=== PATIENT | female | born 1945 | race Caucasian/White ===

== ENCOUNTER → 2017-07-10 11:45 | Outpatient (CLI) | payer MEDICARE, SELFPAY ==
[2017-07-10 13:05] LABS: Anion Gap 18.5 mEq/L (5-15); Blood Urea Nitrogen 22 mg/dL (7-18); Carbon Dioxide 24 mmol/L (21.0-32.0); Chloride 95 mmol/L (98-107); Creatinine,Serum 0.85 mg/dL (0.55-1.02); Estimated Glomerular Filt Rate 66 ml/min (>60); GFR (African American) 80 ML/MIN (>60); Glucose 134 mg/dL (74-106); Potassium 5.5 mmoL/L (3.5-5.1); Sodium 132 mmol/L (136-145)
== END ==
PROVIDERS: Family Provider Family Medicine; PCP Family Medicine; Visit Provider Internal Medicine
DX: I25.10 Atherosclerotic heart disease of native coronary artery without angina pectoris (principal); I77.9 Disorder of arteries and arterioles, unspecified; I11.9 Hypertensive heart disease without heart failure; E78.4 Other hyperlipidemia; I65.23 Occlusion and stenosis of bilateral carotid arteries; Z95.5 Presence of coronary angioplasty implant and graft
CPT/HCPCS: 36415; 80048

== ENCOUNTER → 2017-07-17 09:21 | Outpatient (CLI) | payer MEDICARE, SELFPAY ==
[2017-07-17 12:58] LABS: Anion Gap 14.9 mEq/L (5-15); Blood Urea Nitrogen 28 mg/dL (7-18); Carbon Dioxide 27 mmol/L (21.0-32.0); Chloride 93 mmol/L (98-107); Creatinine,Serum 0.82 mg/dL (0.55-1.02); Estimated Glomerular Filt Rate 69 ml/min (>60); GFR (African American) 83 ML/MIN (>60); Glucose 104 mg/dL (74-106); Potassium 4.9 mmoL/L (3.5-5.1); Sodium 130 mmol/L (136-145)
== END ==
PROVIDERS: Internal Medicine; PCP Family Medicine; Visit Provider Internal Medicine
DX: I25.10 Atherosclerotic heart disease of native coronary artery without angina pectoris (principal); I77.9 Disorder of arteries and arterioles, unspecified; I11.9 Hypertensive heart disease without heart failure; E11.9 Type 2 diabetes mellitus without complications; E78.5 Hyperlipidemia, unspecified; Z95.5 Presence of coronary angioplasty implant and graft; I65.23 Occlusion and stenosis of bilateral carotid arteries
CPT/HCPCS: 36415; 80048

== ENCOUNTER → 2017-11-01 07:37 | Outpatient (CLI) | payer MEDICARE, SELFPAY ==
--- NOTE | 2017-11-01 07:44 | AS_ITS ---
Renal Arterial Duplex Indications: 405.91 Unspecified renovascular hypertension. IMPRESSIONS Abdominal: Cyst in the right [place] kidney. Dimensions: 2cm (ML D)x 2cm (AP D). 1. Greater than 60% stenosis involving the left renal artery 2. The right renal artery appears normal. 3. Incidental findings: A cyst is visualized at the right kidney measuring 1.7 X 1.8 cm. Complete renal arterial duplex. Duplex scan and Doppler flow study including spectral analysis, color and correa scale imaging. Height: Height: 167.6cm. Height: 66in. Weight: Weight: 85.7kg. Weight: 188.6lb. Body mass index: BMI: 30.5kg/m^2. Body surface area: BSA: 2.02m^2. Location: Vascular laboratory. Patient status: Outpatient. Findings: Cyst in the right [facility] kidney. Dimensions: 2cm (ML D)x 2cm (AP D). Tables: Arterial flow: + +--------+--------+ Location V sys V ed + +--------+--------+ Right renal - proximal 124cm/s 25.8cm/s + +--------+--------+ Right renal - mid 143cm/s 28.6cm/s + +--------+--------+ Right renal - distal 137cm/s 22.9cm/s + +--------+--------+ Left renal - proximal 313cm/s 44.3cm/s + +--------+--------+ Left renal - mid 151cm/s 24.9cm/s + +--------+--------+ Left renal - distal 92.2cm/s 22.9cm/s + +--------+--------+ Right renal - Origin 142cm/s 24cm/s + +--------+--------+ Left renal - Origin 219cm/s 35cm/s + +--------+--------+ Aorta - mid 77cm/s 14cm/s + +--------+--------+ Renal anatomy: + +------+------+ Left Right + +------+------+ Long axis 12.2cm 10.3cm + +------+------+ Short axis 5.2cm 4cm + +------+------+ Velocity ratios: + +-----+ V sys + +-----+ Right renal/aortic 1.8 + +-----+ Left renal/aortic 4.1 + +-----+ (Report amended ) Electronically signed by: Rocco Arnett [id number]
== END ==
PROVIDERS: Family Provider Family Medicine; PCP Family Medicine; Visit Provider Internal Medicine
DX: I65.29 Occlusion and stenosis of unspecified carotid artery (principal); R09.89 Other specified symptoms and signs involving the circulatory and respiratory systems
CPT/HCPCS: 93976

== ENCOUNTER → 2018-04-30 10:34 | Outpatient (POV) | payer MEDICARE, SELFPAY | PROVIDERS: Visit Provider Dermatology | DX: Z00.00 Encounter for general adult medical examination without abnormal findings (principal) ==

== ENCOUNTER → 2018-05-28 11:35 | Outpatient (CLI) | payer MEDICARE, SELFPAY ==
--- NOTE | 2018-05-28 11:43 | XR_ITS ---
XR chest 2V HISTORY: ITS.REASON: SOB,COUGH,CHEST CONGESTION,LT RIB PAIN ORDERING PHYSICIAN: Sienna Almendarez PATIENT AGE: 73 years COMPARISON: None FINDINGS: The cardiomediastinal silhouette and pulmonary vascularity are within normal limits. There is a faint 12 mm opacity in the left upper lobe laterally not readily apparent on the previous exam. The remaining lungs are clear. Coronary artery stent is present with coronary artery calcifications noted. No acute bony findings. IMPRESSION: 1. Nonspecific faint opacity noted in the left upper lobe laterally. CT may provide further evaluation as this was not present on the previous exam 2. Coronary artery disease
== END ==
PROVIDERS: PCP Family Medicine; Visit Provider Nurse Practitioner Family
DX: R06.02 Shortness of breath (principal); R05 Cough; R09.89 Other specified symptoms and signs involving the circulatory and respiratory systems; R07.81 Pleurodynia
CPT/HCPCS: 71046

== ENCOUNTER → 2018-06-06 13:56 | Outpatient (CLI) | payer MEDICARE, SELFPAY ==
[2018-06-06 14:18] LABS: Blood Urea Nitrogen 28 mg/dL (7-18); Creatinine,Serum 1.01 mg/dL (0.55-1.02); Estimated Glomerular Filt Rate 54 ml/min (>60); GFR (African American) 65 ML/MIN (>60)
--- NOTE | 2018-06-06 14:27 | CT_ITS ---
CT chest w con HISTORY: Solitary pulmonary nodule, follow-up abnormal chest x-ray Shortness of breath, cough, congestion, left-sided chest pain, ITS.REASON: ABNORMAL CXR ORDERING PHYSICIAN: Renetta Corrigan PATIENT AGE: 73 years COMPARISON: None TECHNIQUE: Axial images obtained following the administration of 75 mL of Optiray 350 . Sagittal, and coronal reformatted images are also generated and reviewed. All CT scans at the facility use one or more dose reduction, viz: automated exposure control, ma/kV adjustment per patient size (including targeted exams where dose is matched to indication, i.e. head), or iterative reconstruction technique. FINDINGS: There are few scattered small axillary lymph nodes. No mediastinal or hilar adenopathy is evident. There is an area of asymmetric density in the superior aspect of the left breast possibly due to asymmetric breast tissue. Mammography suggested for further evaluation. Asymmetric density also present in the left retroareolar region. There are coronary artery calcifications with normal heart size. No mediastinal or hilar mass or adenopathy. There is centrilobular emphysema with hyperinflation and attenuation of the peripheral pulmonary vessels consistent with COPD. There are scattered faint nodular opacities scattered throughout both lungs. There is a 13 x 11 mm opacity in the left upper lobe laterally corresponding to the radiographic abnormality. This is composed of multiple small nodular densities. An area of infiltrate is present in the right upper lobe 12 mm with a somewhat tree-in-bud appearance. Patchy densities present in the left lung base posteriorly. A small cavitary area is present in the left lung base posteriorly at 2.7 x 1.8 x 1.2 cm with a thin rim. 6 mm noncalcified nodule is present in the left lung base. Calcified granuloma is present upper lobe. No pleural effusions are evident. There is a nondisplaced fracture of the left ninth rib laterally this does appear acute. IMPRESSION: 1. Radiographic abnormality corresponds to a small cluster of nodular opacities. Additional tree-in-bud opacification noted in the superior segment right lower lobe along with small bilateral pulmonary nodular densities. This may be inflammatory or infectious in nature. Cannot exclude the possibility of neoplasm. 3 month follow-up is suggested. 2. 2.7 cm x 1.8 cm cavitary lesion in the left lower lobe with a thin rim possibly due to complex pneumatocele. Neoplasm or abscess not totally excluded therefore, three-month CT follow-up suggested 3. Nondisplaced left ninth rib fracture. 4. Coronary artery calcification 5. Centrilobular emphysema/COPD
== END ==
PROVIDERS: Nurse Practitioner Family; Visit Provider Nurse Practitioner
DX: R93.89 Abnormal findings on diagnostic imaging of other specified body structures (principal); J18.9 Pneumonia, unspecified organism; R06.02 Shortness of breath; R05 Cough; R09.89 Other specified symptoms and signs involving the circulatory and respiratory systems; R07.81 Pleurodynia; Z87.891 Personal history of nicotine dependence
CPT/HCPCS: 36415; 71260; 82565; 84520; Q9967

== ENCOUNTER → 2018-06-14 08:47 | Outpatient (CLI) | payer MEDICARE, SELFPAY ==
--- NOTE | 2018-06-14 08:58 | MM_ITS ---
MM Dig screening mamm BI w/CAD CAD Screening COMPARISON: Digital mammograms with CAD 01/15/2017 and 11/26/2015 INDICATION: There is no personal or family history of breast cancer TECHNIQUE: Standard CC and MLO images were obtained. R2 CAD reviewed. FINDINGS: The breasts are composed primarily of fat with mild to moderate scattered fibroglandular densities throughout each breast. There is no new or suspicious lesion in either breast and there are no suspicious microcalcifications. There are few benign-appearing microcalcifications in each breast. IMPRESSION: Fibrofatty parenchyma with no suspicious lesion seen BI-RADS Category: 2 Benign Finding(s) RECOMMENDED FOLLOW-UP: 1YR - 1 YEAR FOLLOW-UP (A letter has been sent to the patient regarding results of the study.)
== END ==
PROVIDERS: PCP Nurse Practitioner; Visit Provider Nurse Practitioner
DX: Z12.31 Encounter for screening mammogram for malignant neoplasm of breast (principal)
CPT/HCPCS: 77067

== ENCOUNTER → 2018-06-20 10:23 | Outpatient (CLI) | payer MEDICARE, SELFPAY ==
--- NOTE | 2018-06-20 10:30 | XR_ITS ---
XR chest 2V HISTORY: Follow-up pneumonia ITS.REASON: ABNORMAL XRAY ORDERING PHYSICIAN: Renetta Corrigan PATIENT AGE: 73 years COMPARISON: 05/28/2018, 06/06/2018 FINDINGS: The cardiomediastinal silhouette and pulmonary vascularity are within normal limits. Coronary artery stent is present Small area of parenchymal opacity is once again noted in the left upper lobe atelectatic millimeters corresponding to the parenchymal opacity seen on the recent chest x-ray and CT scan overall not significantly changed. Remaining lungs are clear. Mild degenerative changes are present in the thoracic spine. IMPRESSION: Overall no change in the indeterminate parenchymal opacity in the left upper lobe. [facility]PC follow-up suggested to confirm stability
== END ==
PROVIDERS: PCP Nurse Practitioner; Visit Provider Nurse Practitioner
DX: R93.89 Abnormal findings on diagnostic imaging of other specified body structures (principal)
CPT/HCPCS: 71046

== ENCOUNTER → 2018-11-08 12:45 | Outpatient (CLI) | payer MEDICARE, SELFPAY ==
--- NOTE | 2018-11-08 12:50 | CT_ITS ---
CT chest wo con HISTORY: Follow-up abnormal chest CT, solitary pulmonary nodule, shortness of breath ITS.REASON: FU ABNORMAL CT CHEST ORDERING PHYSICIAN: Renetta Corrigan APRN PATIENT AGE: 73 years COMPARISON: 06/06/2018 Technique: Axial images were obtained. Sagittal, and coronal reformatted images are also generated and reviewed. All CT scans at the facility use one or more dose reduction, viz: automated exposure control, ma/kV adjustment per patient size (including targeted exams where dose is matched to indication, i.e. head), or iterative reconstruction technique. FINDINGS: Coronary artery calcifications are present. Normal heart size. No mediastinal or hilar mass. Centrilobular emphysema. There is a 5 mm noncalcified nodule in the right lung base posteriorly unchanged. A subpleural 5 mm nodular density is present in the right lung base posteriorly unchanged. 4 mm subpleural nodule right lung base medially unchanged. The infiltrate within the posterior aspect of the right upper lobe is once again noted but slightly improved no change in these parenchymal opacity in the central aspect of the right upper lobe at 6 mm may be due to an area of inflammation. Cluster of small nodules once again noted in the left upper lobe anteriorly and laterally at 12 x 9 mm. These nodules appear somewhat more coalescent on today's exam. A somewhat irregular cavity is present in the left lung base posteriorly may represent a small pneumatocele unchanged measuring approximately 1.8 cm. Groundglass opacity is present superior to this region at 6 mm unchanged. Scattered small nodes present in the axilla. Upper abdominal images show small hiatal hernia. No acute bony findings. IMPRESSION: 1. There are scattered bilateral pulmonary parenchymal opacities as detailed above. Most of these are not significantly changed. The the cluster small nodules in the left upper lobe anteriorly appears more coalescent. This is a question clinical significance. PET/CT may provide further evaluation. If this is not performed then, would recommend continued 6 month follow-up.. 2. Centrilobular emphysema with coronary artery calcifications
== END ==
PROVIDERS: PCP Family Medicine; Visit Provider Nurse Practitioner
DX: R93.89 Abnormal findings on diagnostic imaging of other specified body structures (principal)
CPT/HCPCS: 71250

== ENCOUNTER → 2018-11-12 10:22 | Outpatient (POV) | payer MEDICARE, SELFPAY | PROVIDERS: Visit Provider Dermatology | DX: Z00.00 Encounter for general adult medical examination without abnormal findings (principal) ==

== ENCOUNTER → 2019-01-13 09:20 | Outpatient (CLI) | payer MEDICARE, SELFPAY ==
--- NOTE | 2019-01-13 09:23 | CA_ITS ---
APPROVED REPORT Spiral Binder: RUBI Laterality: Bilateral Study Quality: Good Indications: dizziness Doppler Spectral Velocity Analysis ECA (R) 108.00/ cm/s ECA (L) 81.70/ cm/s dICA (R) 136.00/39.30 cm/s dICA (L) 105.00/35.40 cm/s Raegan (R) 90.40/26.70 cm/s Raegan (L) 111.00/34.60 cm/s pICA (R) 62.90/17.30 cm/s pICA (L) 84.10/23.60 cm/s dCCA (R) 74.60/16.50 cm/s dCCA (L) 66.80/22.80 cm/s pCCA (R) 67.60/12.60 cm/s pCCA (L) 76.20/15.70 cm/s Vert (R) 51.90/ cm/s Vert (L) 48.70/ cm/s ICA/CCA 1.82 ICA/CCA 1.66 Findings Duplex evaluation demonstrates stenosis of the right proximal internal carotid artery <20% with PSV <140 cm/sec, EDV <100 cm/sec, and IC/CC Ratio <4.0.Duplex evaluation demonstrates stenosis of the left proximal internal carotid artery <20% with PSV <140 cm/sec, EDV <100 cm/sec, and IC/CC Ratio <4.0. Heavy calcification in bilateral bulbs. Antegrade flow seen bilateral vertebral arteries. Conclusion Duplex evaluation demonstrates stenosis of the right proximal internal carotid artery <20% . Duplex evaluation demonstrates stenosis of the left proximal internal carotid artery <20% Heavy calcification in bilateral bulbs. Antegrade flow seen bilateral vertebral arteries. Electronically signed by : Rocco Arnett MD 01/14/2019 11:23:14
== END ==
PROVIDERS: PCP Nurse Practitioner; Visit Provider Nurse Practitioner Family
DX: I65.23 Occlusion and stenosis of bilateral carotid arteries (principal)
CPT/HCPCS: 93880

== ENCOUNTER → 2019-01-14 15:05 | Outpatient (POV) | payer MEDICARE, SELFPAY | PROVIDERS: Visit Provider Dermatology | DX: Z00.00 Encounter for general adult medical examination without abnormal findings (principal) ==

== ENCOUNTER → 2019-05-16 12:51 | Outpatient (CLI) | payer MEDICARE, SELFPAY ==
--- NOTE | 2019-05-16 12:59 | CT_ITS ---
PROCEDURE: CT CHEST WO CON CLINICAL INDICATION: PULMONARY NODULE Follow-up pulmonary nodule COMPARISON: CHESTW CT chest w con from 06/06/[address] chest wo con from 11/08/2018 TECHNIQUE: Axial images obtained with sagittal and coronal reformats. All CT scans at the facility use one or more dose reduction, viz: automated exposure control, ma/kV adjustment per patient size (including targeted exams where dose is matched to indication, i.e. head), or iterative reconstruction technique. FINDINGS: HEART AND MEDIASTINAL STRUCTURES: Coronary artery calcifications are present. There is mild thickening of the distal esophagus nonspecific LUNGS AND PLEURAL SPACES: COPD with centrilobular emphysema. Nodular alveolar infiltrate is noted in the right upper lobe posteriorly with a somewhat tree in bud pattern suggesting underlying infection/inflammation. This is somewhat more prominent than when compared to the previous exam. There are scattered small pulmonary opacities noted which appear stable. A 5 mm noncalcified nodules present in the right lower lobe posteriorly unchanged series 3, image 52. A peripheral parenchymal opacity is present in the left upper lobe laterally at 12 mm unchanged. A ground-glass opacity with central lucency is noted in the left upper lobe centrally unchanged small pneumatocele is present in the left lung base unchanged. A sub solid opacity at 10 mm is noted in the left lower lobe posteriorly unchanged. No effusions. BONY STRUCTURES: Degenerative changes thoracic spine UPPER ABDOMEN: Unremarkable. ADDITIONAL FINDINGS: No other significant abnormalities. IMPRESSION: 1. COPD with centrilobular emphysema and scattered nodular opacities which appear stable. Specifically, the nodular opacity in the left upper lobe appears stable. Suggest continued 6-12 month follow-up 2. Right upper lobe tree-in-bud nodular infiltrate slightly worse 3. Coronary artery disease Dictated by: Rocco Arnett MD 05/20/2019 07:31 Electronically signed by Rocco Arnett MD in [facility] 05/20/2019 07:31
== END ==
PROVIDERS: PCP Nurse Practitioner; Visit Provider Internal Medicine Pulmonary Disease
DX: R91.1 Solitary pulmonary nodule (principal)
CPT/HCPCS: 71250

== ENCOUNTER → 2020-06-22 09:22 | Outpatient (CLI) | payer MEDICARE, SELFPAY ==
--- NOTE | 2020-06-22 | XR_ITS ---
PROCEDURE: XR WRIST LT MIN 3V CLINICAL INDICATION: PAIN IN LT WRIST COMPARISON: CR WRL3 WRIST-3 VIEWS-LT from 01/31/2016 FINDINGS: Mild osteoarthritic changes involve the distal radial ulnar joint. There is mild triangular fibrocartilage calcification. Osteoarthritis is also noted at the scapho trapezium joint and 1st metacarpal-carpal joint. No fracture or dislocation. Other findings:None. IMPRESSION: Degenerative changes slightly worse compared to the previous exam Dictated by: Rocco Arnett MD 06/22/2020 19:12 Rocco Arnett MD in [facility] 06/22/2020 19:12
--- NOTE | 2020-06-22 | XR_ITS ---
PROCEDURE: XR WRIST RT MIN 3V CLINICAL INDICATION: PAIN IN RT WRIST COMPARISON: CR WRL3 WRIST-3 VIEWS-LT from 01/31/2016 FINDINGS: Osteoarthritic changes are present involving the distal radial ulnar joint with spurring along the lateral aspect of the distal ulna. There are osteoarthritic changes involving the 1st metacarpal-carpal joint and the scapho trapezium joint. No fracture or dislocation. Other findings:None. IMPRESSION: Degenerative changes as described above Dictated by: Rocco Arnett MD 06/22/2020 19:11 Rocco Arnett MD in [facility] 06/22/2020 19:11
== END ==
PROVIDERS: PCP Nurse Practitioner Family; Visit Provider Nurse Practitioner Family
DX: M25.532 Pain in left wrist (principal); M25.531 Pain in right wrist
CPT/HCPCS: 73110

== ENCOUNTER → 2020-06-25 14:40 | Outpatient (CLI) | payer MEDICARE, SELFPAY ==
--- NOTE | 2020-06-25 14:48 | CT_ITS ---
PROCEDURE: CT CHEST WO CON CLINICAL INDICATION: PULMONARY NODULE Follow up Former smoker COMPARISON: CT CHESTW CT chest w con from 06/06/[address] CHEST WO CON from 05/16/2019 TECHNIQUE: Axial images obtained with sagittal and coronal reformats. All CT scans at the facility use one or more dose reduction, viz: automated exposure control, ma/kV adjustment per patient size (including targeted exams where dose is matched to indication, i.e. head), or iterative reconstruction technique. FINDINGS: HEART AND MEDIASTINAL STRUCTURES: Severe coronary artery calcifications. Mild nonspecific thickening of the distal esophagus. No mediastinal or hilar mass or adenopathy. LUNGS AND PLEURAL SPACES: Centrilobular emphysema. Chronic tree-in-bud opacification in the right upper lobe posteriorly not significantly changed. There are scattered small pulmonary opacities once again noted. Most are unchanged. There is a 13 x 10 mm subpleural nodule in the left upper lobe laterally. This has slightly increased in size from the previous exam previously 11 x 7 mm. Small area of cavitation is present in the left perihilar region with the faint ground-glass density around this area unchanged. Ground-glass opacity is present in the left lower lobe at 12 mm slightly increased in size previously 10 mm. Small area of irregular cavitation noted in the left lung base posteriorly unchanged BONY STRUCTURES: There are old left-sided rib fractures. UPPER ABDOMEN: Unremarkable. ADDITIONAL FINDINGS: No other significant abnormalities. IMPRESSION: 1. 13 x 10 mm subpleural opacity in the left upper lobe. This has slightly increased in size. Neoplasm is considered. Suggest PET-CT for further evaluation. 2. Slight increase in size of ground-glass opacity in the left lower lobe of questionable clinical significance. 3. COPD with centrilobular emphysema. Other smaller pulmonary nodules are unchanged. Dictated by: Rocco Arnett MD 06/26/2020 04:06 Rocco Arnett MD in [facility] 06/26/2020 04:06
== END ==
PROVIDERS: PCP Nurse Practitioner Family; Visit Provider Internal Medicine Pulmonary Disease
DX: R91.1 Solitary pulmonary nodule (principal)
CPT/HCPCS: 71250

== ENCOUNTER → 2020-08-25 08:13 | Outpatient (CLI) | payer MEDICARE, SELFPAY ==
--- NOTE | 2020-08-25 08:18 | XR_ITS ---
PROCEDURE: XR HIP RT 2-3V W/PELVIS CLINICAL INDICATION: RT HIP PAIN COMPARISON: No exams were available for comparison FINDINGS: There are mild osteoarthritic changes of the right hip. No fracture or dislocation. No lytic or blastic change. A small sclerotic focus overlies the femoral head on the abduction ule view. This is nonspecific and measures approximately 9 mm. IMPRESSION: Mild osteoarthritis of the right hip. Nonspecific sclerotic focus of the femoral head possibly due to a bone island. Stability may be confirmed with follow-up Dictated by: Rocco Arnett MD 08/25/2020 12:48 Rocco Arnett MD in [facility] 08/25/2020 12:48
== END ==
PROVIDERS: PCP Nurse Practitioner Family; Visit Provider Nurse Practitioner Family
DX: M25.551 Pain in right hip (principal)
CPT/HCPCS: 73502

== ENCOUNTER → 2020-08-31 10:45 | Outpatient (CLI) | payer MEDICARE, SELFPAY ==
--- NOTE | 2020-08-31 10:49 | MM_ITS ---
PROCEDURE INFORMATION: Exam: MG Screening 3D Mammography Exam date and time: 08/31/2020 10:49 AM Age: 75 years old Clinical indication: Encounter for screening mammogram for malignant neoplasm of breast TECHNIQUE: Imaging protocol: Screening tomosynthesis and 2D mammography including computer-aided detection (CAD) when performed. COMPARISON: 1. MG SCBI MM Dig screening mamm BI w/CAD 06/14/2018 9:16 AM 2. MG DMSB DIG MAMM-SCREEN SHREYAS W/CAD 01/15/2017 8:31 AM FINDINGS: MAMMOGRAPHY: Breast composition: The breast tissue is composed of scattered areas of fibroglandular density. Mass: None. Architectural distortion: None. Calcifications: No suspicious calcifications. Asymmetric density: 0.9cm focal asymmetry in the anterior third of the right upper outer quadrant Skin thickening: None. Axillary adenopathy: None. IMPRESSION: Patient to be recalled for spot compression views of the right breast in the CC and MLO projections and right breast ultrasound for further evaluation of a right breast asymmetry. ASSESSMENT: BI-RADS Category 0: Incomplete- Need Additional Imaging Evaluation and/or Prior Mammograms for Comparison
== END ==
PROVIDERS: PCP Nurse Practitioner Family; Visit Provider Nurse Practitioner Family
DX: Z12.31 Encounter for screening mammogram for malignant neoplasm of breast (principal)
CPT/HCPCS: 77063; 77067

== ENCOUNTER → 2020-09-27 13:41 | Outpatient (CLI) | payer MEDICARE, SELFPAY ==
--- NOTE | 2020-09-27 13:45 | MM_ITS ---
PROCEDURE: MM DIG MAMM DX UNILAT RT CAD Digital Breast Tomosynthesis Included Right breast ultrasound complete with axilla CLINICAL INDICATION: ABN MAMM COMPARISON: MG DMSB DIG MAMM-SCREEN SHREYAS from 11/26/2015 MG DMSB DIG MAMM-SCREEN SHREYAS W/CAD from 01/15/2017 MG SCBI MM Dig screening mamm BI w/CAD from 06/14/2018 MG MM DIG SCREENING MAMM BI W/CAD from 08/31/2020 US US BREAST RT COMPLETE from 09/27/2020 TECHNIQUE: Problem solving views of the right breast along with right breast ultrasound FINDINGS: The area of asymmetry in the anterior 1/3 of the right breast slightly lateral appears to compress out as fibroglandular tissue and is only well seen on the CC view. There is a fairly well-circumscribed nodule in the lateral aspect of the right breast that has been present dating back to 01/15/2017. This nodule slightly more prominent on the most recent screening mammogram. Right breast ultrasound: The only abnormality detected is a small cluster of cysts at 11 o'clock measuring approximately 5 by 5 mm and may in part be related to the lateral mammographic abnormality. No suspicious nodules evident. IMPRESSION: Probably benign findings. Recommend six-month mammographic and sonographic follow-up BI-RAD Category: 3 Probably Benign Finding Short Term Follow-Up FOLLOW-UP: 6M 6 Month Follow-up (A letter has been sent to the patient regarding results of the study.) Dictated by: Rocco Arnett MD 10/06/2020 09:57 Rocco Arnett MD in [facility] 10/06/2020 09:57
== END ==
PROVIDERS: PCP Nurse Practitioner Family; Visit Provider Nurse Practitioner Family
DX: R92.8 Other abnormal and inconclusive findings on diagnostic imaging of breast (principal)
CPT/HCPCS: 76641; 77061; 77065; G0279

== ENCOUNTER → 2021-01-03 14:20 | Outpatient (CLI) | payer MEDICARE, SELFPAY ==
--- NOTE | 2021-01-03 14:29 | US_ITS ---
PROCEDURE: US TRANSVAGINAL CLINICAL INDICATION: ABN VAGINAL BLEEDING Postmenopausal bleeding COMPARISON: No exams were available for comparison FINDINGS: UTERUS: 4cm x 3cmx 2cm with a combined endometrial thickness of 9.8mm LEFT OVARY: Not visualized. No obvious left adnexal mass. RIGHT OVARY: [id number] with a volume of 7.9ml. There are 2 right ovarian cyst which measure 17 and 15 mm. IMPRESSION: Thickened endometrium at 10 mm. Differential diagnosis includes endometrial hyperplasia, hemorrhage, or endometrial carcinoma. Dictated by: Rocco Arnett MD 01/03/2021 15:32 Rocco Arnett MD in [facility] 01/03/2021 15:32
== END ==
PROVIDERS: PCP Nurse Practitioner Family; Visit Provider Nurse Practitioner Family
DX: N93.9 Abnormal uterine and vaginal bleeding, unspecified (principal)
CPT/HCPCS: 76830

== ENCOUNTER → 2021-03-21 12:43 | Outpatient (CLI) | payer MEDICARE, SELFPAY ==
--- NOTE | 2021-03-21 12:44 | CA_ITS ---
APPROVED REPORT EXAM: Comprehensive 2D, Doppler, and color-flow Echocardiogram Manager Transplant: Loree Ash, ISABEL, RVS Ht: 5 ft 6 in Wt: 206lbs BSA: 2.02 BP: 146/76 mmHg Indications: CAD, Pre-op clearance for Left hip replacement, 2D Dimensions Left Atrium 3.64 cm LA Volume 79.20 mL LVOT 2.06 cm (M/F) 1.5-2.5 LA Volume Index 41.50 mL/m2 (M/F) 16-34 M-Mode Dimensions RVDd 2.81 cm (0.9-2.6) LA Diam 4.34 cm (1.9-4.0) LVDd 5.10 cm (3.5-5.7) Ao Diam 3.22 cm (2.0-3.7) LVDs 3.78 cm (3.5-5.7) IVSd 1.09 cm (0.6-1.1) PWd 1.13 cm (0.6-1.1) EF (Teich) 50.60% EPSs 0.77 cm FS 25.90% EDV (Teich) 123.80 mL TAPSE 2.00 (<1.7) ESV (Teich) 61.20 mL LV Diastology E Decel Time 280.00 (160-240 msec) E/A Ratio 0.70 MED E' 7.80 (< 7 cm/sec) MED A' 10.20 cm/s E'/MED E' Ratio 8.03 (>14) LAT E' 9.90 (<10 cm/sec) LAT A' 11.90 cm/s E/LAT E' Ratio 6.32 (>14) Aortic Valve LVOT Max 107.00 (70-110 cm/s) LVOT VTI 29.33 cm AoV Peak Benjamin. 150.00 (50-130 cm/s) AO Peak GR. 9.00 mmHg AO Mean GR. 4.80 (<5 mmHg) AO VTI 39.18 (18-25 cm) VINCENZO (VTI) 2.50 (2.5-4.5 cm2) Mitral Valve MV A Velocity 89.00 (40-130 cm/s) E/A Ratio 0.70 MV Decel. Time 280.00 (160-240 ms) Pulmonary Valve PV Peak Velocity 99.00 (50-150 cm/s) CA End VMAX 104.00 cm/s Tricuspid Valve TR P. Velocity 177.00 cm/s RAP Estimate 10.00 mmHg RVSP 22.60 mmHg Left Ventricle Left atrium is qualitatively mildly enlarged, left ventricle is normal size, mild concentric left ventricular hypertrophy, visually estimated ejection fraction 55% with no regional wall motion abnormality, grade 1 diastolic dysfunction seen without tissue Doppler evidence of raise left atrial pressure. Right Ventricle Right atrium and right ventricle are mildly enlarged with normal contractility. Aortic Valve Aortic valve is minimally thickened and fibrosed, there is no aortic stenosis or aortic insufficiency. Mitral Valve Mitral is grossly normal, there is trace mitral regurgitation. Tricuspid Valve Tricuspid grossly normal, there is trace tricuspid regurgitation, tricuspid regurgitation jet velocity is inadequate for calculation of the right ventricular systolic pressure. Pulmonic Valve Pulmonic valve is poorly visualized. Great Vessels Aortic root is normal size. Inferior vena cava is poorly visualized. Pericardium No significant pericardial effusion noted. Conclusion 1. Mild biatrial enlargement, normal left ventricular size, mild concentric left ventricular hypertrophy, visually estimated ejection fraction 45% with no wall motion abnormality, grade 1 diastolic dysfunction without tissue Doppler evidence of raise left atrial pressure. 2. Left ventricle normal contractility. 3. Trace mitral and tricuspid regurgitation. 4. No significant pericardial effusion. 5. Inferior vena cava is poorly visualized. Electronically signed by : Max Georges MD 03/21/2021 21:15:44
== END ==
PROVIDERS: PCP Nurse Practitioner Family; Visit Provider Physician Assistant
DX: E78.2 Mixed hyperlipidemia (principal); I11.9 Hypertensive heart disease without heart failure; I25.10 Atherosclerotic heart disease of native coronary artery without angina pectoris; I65.23 Occlusion and stenosis of bilateral carotid arteries; I77.9 Disorder of arteries and arterioles, unspecified; Z95.5 Presence of coronary angioplasty implant and graft
CPT/HCPCS: 93306

== ENCOUNTER → 2021-04-11 14:37 | Outpatient (CLI) | payer MEDICARE, SELFPAY ==
--- NOTE | 2021-04-11 14:43 | MM_ITS ---
PROCEDURE INFORMATION: Exam: US Right Breast, Complete MG Right Diagnostic Breast Tomosynthesis Exam date and time: 04/11/2021 2:43 PM Age: 75 years old Clinical indication: Short-term radiographic follow-up for a right breast mass TECHNIQUE: Imaging protocol: Complete ultrasound of all four quadrants of the Right breast and the retroareolar regions, including ultrasound of the axilla when performed. Right Diagnostic tomosynthesis and 2D mammography including computer-aided detection (CAD) when performed. Unilateral or bilateral exam. COMPARISON: 1. MG MM DIG MAMM DX UNILAT RT CAD 09/27/2020 2:05 PM 2. MG MM DIG SCREENING MAMM BI W/CAD 08/31/2020 10:50 AM FINDINGS: MAMMOGRAPHY: The breast tissue is composed of scattered areas of fibroglandular density. There is no stellate mass, architectural distortion or suspicious microcalcifications to suggest malignancy. Stable 0.9 cm ovoid mass in the anterior to middle third of the right upper outer quadrant. No skin thickening or axillary adenopathy. ULTRASOUND: Sonographic images of the right breast including the retroareolar region, all 4 quadrants and the axilla do not demonstrate any solid masses. 0.5 cm right 11 o'clock axis cyst. Cluster of cysts with a combined dimension of 1.3 cm in the right 10 o'clock axis most likely correlates with the stable mass on mammography. No architectural distortion or acoustical shadowing. No skin thickening or axillary adenopathy. IMPRESSION: Stable mammographically visible probably benign mass in the upper outer quadrant of the right breast. A six-month follow-up diagnostic bilateral mammogram is recommended for continued close surveillance of the right breast as well as part of an annual screening schedule ASSESSMENT: BI-RADS Category 3: Probably benign
== END ==
PROVIDERS: PCP Nurse Practitioner Family; Visit Provider Nurse Practitioner Family
DX: R92.8 Other abnormal and inconclusive findings on diagnostic imaging of breast (principal)
CPT/HCPCS: 76641; 77061; 77065; G0279

== ENCOUNTER → 2021-04-29 07:27 | Outpatient (CLI) | payer MEDICARE, SELFPAY ==
--- NOTE | 2021-04-29 07:27 | CT_ITS ---
FINAL REPORT TECHNIQUE: Axial images were obtained through the chest without contrast. CLINICAL HISTORY: Nodule F/U left upper lobe last ct chest without 06/25/20 COMPARISON: Marked 09/19/2020; May 16, 2019 FINDINGS: There is no significant mediastinal mass or adenopathy. The heart size is normal. There is no pericardial or pleural effusion. Limited images of the upper abdomen are unremarkable. The subpleural nodule in the lateral left upper lobe measures 1.3 x 1.8 cm in transverse and craniocaudal dimensions. This appears larger than previous and is concerning for low grade neoplasm. Mild chronic changes are seen in the lung bases. There a is a ground-glass opacity in left lower lobe on image 41 of series 2 that is stable. IMPRESSION: Progressive increase in size of a noncalcified subpleural nodule in the periphery of the left upper lobe. PET scan is highly recommended. Tissue sampling could be considered. Reviewed, Interpreted and Dictated by Bk Singh MD Transcribed by Long Breaux Authenticated by Bk Singh MD on 04/29/2021 09:27:[address] [facility]
[2021-04-29 08:30] VITALS: PULSE 57; PULSE 61
== END ==
PROVIDERS: PCP Nurse Practitioner Family; Visit Provider Internal Medicine Pulmonary Disease
DX: R91.8 Other nonspecific abnormal finding of lung field (principal)
CPT/HCPCS: 71250; 94060; 94618; 94640; 94727; 94729

== ENCOUNTER → 2021-07-04 09:10 | Outpatient (CLI) | payer MEDICARE, SELFPAY ==
[2021-07-04 09:45] LABS: Basophils # 0.1 K/mm3 (0-0.2); Basophils % 1.7 % (0.1-2.0); Eosinophils # 0.4 K/mm3 (0.0-0.4); Eosinophils % 5.7 % (0.1-12.0); Hematocrit 39.5 % (37.0-47.0); Hemoglobin 12.8 g/dL (12.2-16.2); Lymphocytes % 14.6 % (10-50); Mean Corpuscular HGB Conc 32.4 g/dL (31.8-35.4); Mean Corpuscular Hemoglobin 29.9 pg (27.0-31.2); Mean Corpuscular Volume 92.3 fl (81-99); Mean Platelet Volume 9.2 fl (7.4-10.4); Monocytes # 0.4 K/mm3 (0.1-1.0); Monocytes % 5.9 % (1.7-9.3); Neutrophils % 72.1 % (37.0-80.0); Platelet Count 234 K/mm3 (142-424); Red Blood Count 4.28 M/mm3 (4.20-5.40); Red Cell Distribution Width 13.9 % (11.5-17.5)
[2021-07-04 09:56] LABS: INR 0.97 (0.9-1.1)
[2021-07-04 10:04] LABS: Chloride 101 mmol/L (98-107); Potassium 4.7 mmoL/L (3.5-5.1); Sodium 134 mmol/L (136-145)
[2021-07-04 10:05] VITALS: BMI 32.3
[2021-07-04 10:07] LABS: Anion Gap 12.7 mEq/L (5-15); Blood Urea Nitrogen 25 mg/dl (7-17); Carbon Dioxide 25 mmol/L (22.0-30.0); Estimated Glomerular Filt Rate 70 ml/min (>60); GFR (African American) 85 ML/MIN (>60)
[2021-07-04 10:08] LABS: Calcium 8.5 mg/dl (8.4-10.2); Glucose 141 mg/dl (74-100)
--- NOTE | 2021-07-08 09:27 | HMH.ITSTN ---
I called and spoke with Freda Mcclure and told her not to take her plavix 07/09-07/11/2021 for her scheduled BX on 07/11/21. Also told her not to take her Aspirin on Sunday07/11/21.
[2021-12-29 10:58] LABS: POC Glucose,Bedside 141 (70-110)
== END ==
PROVIDERS: PCP Nurse Practitioner Family; Visit Provider Internal Medicine Pulmonary Disease
DX: J45.909 Unspecified asthma, uncomplicated (principal); I25.10 Atherosclerotic heart disease of native coronary artery without angina pectoris; I77.9 Disorder of arteries and arterioles, unspecified; I11.9 Hypertensive heart disease without heart failure; E87.4 Mixed disorder of acid-base balance; I65.23 Occlusion and stenosis of bilateral carotid arteries; Z95.5 Presence of coronary angioplasty implant and graft
CPT/HCPCS: 36415; 80048; 82962; 85025; 85610

== ENCOUNTER → 2021-07-11 07:45 | Outpatient (CLI) | payer MEDICARE, SELFPAY ==
--- NOTE | 2021-07-11 07:50 | CT_ITS ---
FINAL REPORT CLINICAL HISTORY: . left lung nodule FINDINGS: CT GUIDE LUNG BIOPSY. HISTORY: Lung mass ATTENDING PHYSICIAN: Dr. Narayan PHYSICIAN MANAGER CLIENT SUPPORT: Francisco Javier Riojas PA-C PROCEDURE: After informed consent was obtained and a timeout was performed, the patient was prepped and draped in usual sterile fashion over the left upper anterior chest. Utilizing local anesthesia and sterile technique with a coaxial system, access to lesion was obtained. 5 20-gauge core biopsy passes were made. Post biopsy films demonstrate a small amount of likely introduced air. There was no significant pneumothorax. The patient received mild procedural sedation. The patient tolerated the procedure well and left the department in good condition. IMPRESSION: Status post CT-guided biopsy of a lung nodule. PROCEDURAL SEDATION: 2 mg of IV Versed and 50 mcg of Fentanyl were administered. Continuous vital sign monitoring was used. An RN was present during the sedation process. Overall sedation time was 30 minutes. Reviewed, Interpreted and Dictated by Bk Singh MD Transcribed by DANYA Gomez Authenticated by Bk Singh MD on 07/11/2021 11:05:26 AM [facility]
--- NOTE | 2021-07-11 07:54 | HMH.ANESCL ---
[facility] Anesthesia Checklist - Patient Identification Patient Identification: Arm Band - Structural Data Admitted From: Home Planned Operative Procedure/s: CT guided lung bx Consent for Planned Operative Procedure(s) Verified: Yes - NPO Status Verified Time NPO: 00:00 - Additional verifications Anesthesia Reactions: No Hx Blood Transfusions: No Blood Transfusion Reaction: No - Airway Assessment C-Spine Mobility Assessed: Yes TMJ Mobility Assessed: Yes Dentition: Good Dentition - Neurological Assessment Level of Consciousness: Awake Hx Seizures: No Numbness or tingling in extremities: No - Anesthesia Plan Anesthesia Risk discussed: Yes Anesthesia Plan: Verified ASA Class: III Anesthesia Type: MAC [facility] History I have reviewed the patient's past medical history: Yes Medical History: Reports:: Coronary Artery Disease, Diabetes Mellitus Type 2, Hyperlipidemia, Hypertension, Myocardial Infarction Denies:: Cancer, Diabetes Mellitus Type 1, Internal Pacemaker, MRSA, Seizures *Have you ever received a pneumonia vaccine?: Yes *Have you received a flu vaccine this season?: No Other Medical History: Reports: Arthritis, Hypothyroidism. Denies: Blood Transfusion Reaction Anesthesia experience/problems:: None Laterality Cases: Bilateral: Arthroscopy Knee, Arthroscopy Shoulder Other Surgeries: Yes: No Previous Surgery, Angiogram, Cardiac Catheterization, Coronary Stent, Other. No: Pacemaker Amputation: No Fractures: No - *Social History Smoking Status: Former smoker Alcohol Intake: never Alcohol Intake Frequency:: other Substance Use Type: denies use *Occupational Status:: retired Housing: house Household Members: children *Travel in the last 8 weeks: None Family Hx:: Diabetes
[2021-07-11 08:02] VITALS: BMI 32.3
--- NOTE | 2021-07-11 08:56 | XR_ITS ---
FINAL REPORT TECHNIQUE: Chest PA & Lateral CLINICAL HISTORY: POST BIOPSY COMPARISON: CT from the same day FINDINGS: 2 views of the chest were performed. The heart size is normal. The mediastinum is within normal limits. There is abnormal opacity in the left upper lobe due to hemorrhage. There are no pleural effusions. There is a tiny peripheral left lung pneumothorax. The bony thorax appears intact. IMPRESSION: Tiny peripheral left lung pneumothorax. Abnormal opacity in the left upper lobe due to hemorrhage. Reviewed, Interpreted and Dictated by Bk Singh MD Transcribed by Long Breaux Authenticated by Bk Singh MD on 07/11/2021 11:05:18 AM [facility]
--- NOTE | 2021-07-11 11:00 | XR_ITS ---
FINAL REPORT TECHNIQUE: Chest PA & Lateral CLINICAL HISTORY: 2 HOUR POST BX COMPARISON: 2 hours prior FINDINGS: 2 views of the chest were performed. The heart size is normal. The mediastinum is within normal limits. There is no acute cardiopulmonary process. There are no pleural effusions. There is slight increase in the left apical pneumothorax with 9 mm of pleural separation. The bony thorax appears intact. IMPRESSION: Slight increase in a left apical pneumothorax. Reviewed, Interpreted and Dictated by Bk Singh MD Transcribed by Long Breaux Authenticated by Bk Singh MD on 07/11/2021 12:38:17 PM [facility]
--- NOTE | 2021-07-11 13:00 | XR_ITS ---
FINAL REPORT TECHNIQUE: Chest PA & Lateral CLINICAL HISTORY: 4 HOUR POST OP COMPARISON: 2 hours prior FINDINGS: 2 views of the chest were performed. The heart size is normal. The mediastinum is within normal limits. There is no acute cardiopulmonary process. There are no pleural effusions. There is no significant change in the left apical pneumothorax. The bony thorax appears intact. IMPRESSION: No significant change in the left apical pneumothorax. Recommend repeat study in 2 hours. Reviewed, Interpreted and Dictated by Bk Singh MD Transcribed by Long Breaux Authenticated by Bk Singh MD on 07/11/2021 01:13:15 PM [facility]
[2021-07-11 14:25] LABS: POC Glucose,Bedside 107 (70-110)
--- NOTE | 2021-07-11 15:00 | XR_ITS ---
FINAL REPORT TECHNIQUE: Chest PA & Lateral CLINICAL HISTORY: 6 HOURS POST BX COMPARISON: 2 hours prior FINDINGS: 2 views of the chest were performed. The heart size is normal. The mediastinum is within normal limits. There is no acute cardiopulmonary process. There are no pleural effusions. There is no change in the left apical pneumothorax pneumothorax. The bony thorax appears intact. IMPRESSION: No change in the left apical pneumothorax. Reviewed, Interpreted and Dictated by Bk Singh MD Transcribed by Long Breaux Authenticated by Bk Singh MD on 07/11/2021 04:17:22 PM [facility]
--- NOTE | 2021-07-13 08:38 | HMH.ITSTN ---
Patients mother , Mryanda, called this morning stating patient was having pain on her left side, posterior chest and left shoulder. I spoke with Naldo the radiology PA and she and Francisco Javier suggested the patient call the ordering doctors and tell him her symptoms [address] guided left lung BX. Patient was not short of breath at the time of the phone call. Told Myranda that if Mrs Mcclure symptoms started to get worse to go straight to the ER. Also told Myranda to call us back if she had any other questions.
[2021-12-29 10:59] LABS: POC Glucose,Bedside 135 (70-110)
== END ==
PROVIDERS: PCP Nurse Practitioner Family; Visit Provider Internal Medicine Pulmonary Disease
DX: R91.1 Solitary pulmonary nodule (principal); E11.9 Type 2 diabetes mellitus without complications; Z79.84 Long term (current) use of oral hypoglycemic drugs
CPT/HCPCS: 32408; 71046; 77012; 82962; 88305; 88333

== ENCOUNTER → 2021-09-29 14:38 | Outpatient (CLI) | payer MEDICARE, SELFPAY ==
--- NOTE | 2021-09-29 14:39 | CT_ITS ---
FINAL REPORT TECHNIQUE: Axial images were obtained from the lung apex to the mid abdomen by computed tomography. Coronal reformatted images were obtained. This study was performed with techniques to keep radiation doses as low as reasonably achievable, (ALARA). Individualized dose reduction techniques using automated exposure control or adjustment of mA and/or kV according to the patient''s size were employed. CLINICAL HISTORY: Nodule F/U COMPARISON: April 29, 2021 FINDINGS: There is no axillary adenopathy. There is no hilar or mediastinal adenopathy. There are several coronary artery calcifications. There is mild emphysema and mild scarring. There is no pleural or pericardial effusion. Limited images of the upper abdomen are unremarkable. There is a pleural based cavitary nodule in the lateral left upper lobe measuring 1.4 cm, previously measured 1.2 cm. This may be neoplastic or infectious. There is a ground-glass nodule in the left lower lobe measuring 8 mm and is stable. There are several small scattered, less than 5 mm nodules that are stable. IMPRESSION: Pleural based cavitary nodule lateral left upper lobe has slightly increased in size, may be neoplastic or infectious. Ground-glass nodule in the left lower lobe, stable. Small scattered less than 5 mm nodules, stable. Reviewed, Interpreted and Dictated by Brandon Au III, MD Transcribed by Azalea Poon Authenticated and [facility]
== END ==
PROVIDERS: PCP Nurse Practitioner Family; Visit Provider Internal Medicine Pulmonary Disease
DX: R91.8 Other nonspecific abnormal finding of lung field (principal)
CPT/HCPCS: 71250

== ENCOUNTER → 2021-10-13 13:53 | Outpatient (CLI) | payer MEDICARE, SELFPAY ==
--- NOTE | 2021-10-13 13:58 | MM_ITS ---
PROCEDURE INFORMATION: Exam: MG Bilateral Diagnostic Breast Tomosynthesis Exam date and time: 10/13/2021 1:56 PM Age: 76 years old Clinical indication: Short-term radiographic right breast TECHNIQUE: Imaging protocol: Bilateral Diagnostic tomosynthesis and 2D mammography including computer-aided detection (CAD) when performed. Unilateral or bilateral exam. COMPARISON: 1. MG MM DIG MAMM DX UNILAT RT CAD 04/11/2021 2:48 PM 2. MG MM DIG MAMM DX UNILAT RT CAD 09/27/2020 2:05 PM FINDINGS: MAMMOGRAPHY: The breast tissue is composed of scattered areas of fibroglandular density. There is no stellate mass, architectural distortion or suspicious microcalcifications in either breast to suggest malignancy. Stable 0.9 cm ovoid mass in the middle third of the right upper outer quadrant. 0.5 cm mass in the posterior third of the left medial breast only seen in the craniocaudal projection. No skin thickening or axillary adenopathy. IMPRESSION: 1. Patient to be recalled for a spot compression view of the left breast in the craniocaudal projection, a full 90 degree lateral view of the left breast, and left breast ultrasound for further evaluation of a questionable left breast mass. 2. Stable right upper outer quadrant mass compared to prior mammogram dated 08/31/2020. A six-month follow-up diagnostic right mammogram is recommended for continued close surveillance. ASSESSMENT: BI-RADS Category 0: Incomplete- Need Additional Imaging Evaluation and/or Prior Mammograms for Comparison
== END ==
PROVIDERS: PCP Nurse Practitioner Family; Visit Provider Nurse Practitioner Family
DX: R92.8 Other abnormal and inconclusive findings on diagnostic imaging of breast (principal)
CPT/HCPCS: 77062; 77066; G0279

== ENCOUNTER 2021-11-02 16:00 | Outpatient (RCR) | payer MEDICARE, SELFPAY | END 2021-11-02 16:05 | disposition home or self-care (01) | LOC: PT 16:00 | PROVIDERS: PCP Nurse Practitioner Family; Visit Provider Nurse Practitioner Family | DX: M25.551 Pain in right hip (principal) | CPT/HCPCS: 97110; 97163 ==

== ENCOUNTER → 2021-11-03 13:49 | Outpatient (CLI) | payer MEDICARE, SELFPAY ==
--- NOTE | 2021-11-03 14:02 | MM_ITS ---
PROCEDURE INFORMATION: Exam: US Left Breast, Complete MG Left Diagnostic Breast Tomosynthesis Exam date and time: 11/03/2021 2:07 PM Age: 76 years old Clinical indication: Recall on the basis of screening mammogram 10/13/2021 for further evaluation of 0.5 cm mass in the posterior 3rd of the left medial breast, only seen in the craniocaudad view. TECHNIQUE: Imaging protocol: Complete ultrasound of all four quadrants of the Left breast and the retroareolar regions, including ultrasound of the axilla when performed. Left Diagnostic tomosynthesis and 2D mammography including computer-aided detection (CAD) when performed. Unilateral or bilateral exam. COMPARISON: 1. MG MM DIG MAMM BI DX W/CAD 10/13/2021 1:56 PM 2. MG MM DIG SCREENING MAMM BI W/CAD 08/31/2020 10:50 AM 3. MG SCBI MM Dig screening mamm BI w/CAD 06/14/2018 9:16 AM 4. MG DMSB DIG MAMM-SCREEN SHREYAS 11/26/2015 9:51 AM FINDINGS: MAMMOGRAPHY: Spot compression confirms a 0.5 cm slightly lobulated mass which may have a few related faint calcifications in the left upper outer quadrant posterior 3rd, 13-15 cm from the nipple. ULTRASOUND: Left sonography, all 4 quadrants, retroareolar and axilla. At 11 o'clock 10 cm from the nipple, slightly irregular, probably solid, hypoechoic mass measuring 0.5 x 0.5 x 0.4 cm which appears to correlate with the mammographic mass. Sonographically unremarkable left axillary lymph nodes. IMPRESSION: Suspicious 0.5 cm mass in the left breast at 11 o'clock, recommend ultrasound-guided biopsy with correlation to confirm that the ultrasound placed clip corresponds to the mammographic mass. ASSESSMENT: BI-RADS Category 4: Suspicious
== END ==
PROVIDERS: PCP Nurse Practitioner Family; Visit Provider Nurse Practitioner Family
DX: R92.8 Other abnormal and inconclusive findings on diagnostic imaging of breast (principal)
CPT/HCPCS: 76641; 77061; 77065; G0279

== ENCOUNTER → 2021-11-28 14:16 | Outpatient (CLI) | payer MEDICARE, SELFPAY ==
--- NOTE | 2021-11-28 14:19 | MR_ITS ---
FINAL REPORT CLINICAL HISTORY: RIGHT HIP PAIN. right anterior hip pain x1year. catching in hip. FINDINGS: Multiplanar MR imaging of the right hip was performed without contrast. There is no evidence of fracture or dislocation. There is no evidence of avascular necrosis. There is mild to moderate right hip degenerative change. There are subchondral cysts in the superior right acetabulum. No labral tear is identified. A small right hip joint effusion is seen. The tendons are intact. The musculature is intact. No soft tissue mass or cyst is identified. IMPRESSION: Mild to moderate right hip degenerative change with subchondral cyst formation in the superior right acetabulum. Small right hip joint effusion. Reviewed, Interpreted and Dictated by Brandon Au III, MD Transcribed by Long Breaux Authenticated and [facility]
== END ==
PROVIDERS: PCP Nurse Practitioner Family; Visit Provider Nurse Practitioner Family
DX: M25.551 Pain in right hip (principal)
CPT/HCPCS: 73721

== ENCOUNTER → 2022-04-03 07:55 | Outpatient (CLI) | payer MEDICARE, SELFPAY ==
--- NOTE | 2022-04-03 07:55 | CT_ITS ---
PROCEDURE INFORMATION: Exam: CT Chest Without Contrast; Diagnostic Exam date and time: 04/03/2022 8:04 AM Age: 76 years old Clinical indication: Condition or disease; Other: Breast cancer; Prior surgery; Surgery date: 6+ months; Surgery type: Breast biopsy and removal of tumor; Additional info: 6 month f/u TECHNIQUE: Imaging protocol: Diagnostic computed tomography of the chest without contrast. Radiation optimization: All CT scans at this facility use at least one of these dose optimization techniques: automated exposure control; mA and/or kV adjustment per patient size (includes targeted exams where dose is matched to clinical indication); or iterative reconstruction. COMPARISON: CT CHEST WO CON 09/29/2021 2:44 PM FINDINGS: Lungs: Again noted is the 1.4 cm nodule in the anterolateral left upper lobe. The nodule is unchanged in size and appearance in the interval. A 7 mm nodule just inferior to the larger nodule is larger and patel in the interval. A 6 mm nodule in the posterolateral right lower lobe at 2-50 is unchanged. A ground-glass nodule in the posterior left lower lobe is unchanged. No other pulmonary nodules or masses. Small area of interstitial change in the posterior right upper lobe centered at 2-28. This finding was present previously. And is unchanged. No other pulmonary infiltrate or consolidation. Ihdl-es-caiyxdoh emphysematous changes again noted. Pleural spaces: Unremarkable. No pneumothorax. No pleural effusion. Heart: Unremarkable. No cardiomegaly. No pericardial effusion. Coronary arteries: Stents in the coronary arteries. Lymph nodes: Unremarkable. No enlarged lymph nodes. Vasculature: Unremarkable. No aortic aneurysm. Bones/joints: Again noted are dgur-za-hwtdayti degenerative changes. No lytic or blastic lesions. No fractures. Soft tissues: Area of stranding in the medial aspect of the left breast with clips in place. This finding is new since the previous study. The soft tissues of the body wall are otherwise unremarkable. IMPRESSION: 1. 1.4 cm nodule in the left upper lobe, stable in the interval. A 7 mm nodule just inferior to the larger nodule is larger and patel in the interval. This may represent progression of metastatic disease. Other pulmonary nodules are stable in the interval. 2. No other acute changes in the chest. 3. Emphysema. 4. Interval surgical change in the left breast. 5. Coronary artery disease treated with stenting.
== END ==
PROVIDERS: PCP Nurse Practitioner Family; Visit Provider Internal Medicine Pulmonary Disease
DX: R91.8 Other nonspecific abnormal finding of lung field (principal)
CPT/HCPCS: 71250

== ENCOUNTER → 2022-07-04 10:02 | Outpatient (CLI) | payer MEDICARE, SELFPAY | PROVIDERS: PCP Family Medicine; Visit Provider Nurse Practitioner | DX: E78.2 Mixed hyperlipidemia (principal); I11.9 Hypertensive heart disease without heart failure; I25.10 Atherosclerotic heart disease of native coronary artery without angina pectoris; I65.23 Occlusion and stenosis of bilateral carotid arteries; I77.9 Disorder of arteries and arterioles, unspecified; Z95.5 Presence of coronary angioplasty implant and graft; I42.8 Other cardiomyopathies | CPT/HCPCS: 93306 ==

== ENCOUNTER → 2022-07-10 08:13 | Outpatient (CLI) | payer MEDICARE, SELFPAY ==
[2022-07-10 09:07] LABS: Basophils # 0.1 K/mm3 (0-0.2); Basophils % 0.8 % (0.1-2.0); Eosinophils # 0.7 K/mm3 (0.0-0.4); Eosinophils % 8.3 % (0.1-12.0); Hemoglobin 13.7 g/dL (12.2-16.2); Lymphocytes # 1.3 K/mm3 (0.7-4.5); Lymphocytes % 15.9 % (10-50); Mean Corpuscular HGB Conc 32.7 g/dL (31.8-35.4); Mean Corpuscular Volume 88.7 fl (81-99); Mean Platelet Volume 8.1 fl (7.4-10.4); Monocytes # 0.5 K/mm3 (0.1-1.0); Monocytes % 6.5 % (1.7-9.3); Neutrophils # 5.6 K/mm3 (1.8-7.8); Neutrophils % 68.5 % (37.0-80.0); Platelet Count 204 K/mm3 (142-424); Red Blood Count 4.73 M/mm3 (4.20-5.40); Red Cell Distribution Width 13.5 % (11.5-17.5); White Blood Count 8.2 K/mm3 (4.8-10.8)
[2022-07-10 09:13] LABS: Creatinine,Urine Random 63 mg/dL (Not Estab.)
[2022-07-10 09:18] LABS: Microalbumin/Creatinine Ratio 27.7
[2022-07-10 09:25] LABS: Chloride 94 mmol/L (98-107); Potassium 4.4 mmoL/L (3.5-5.1); Sodium 133 mmol/L (136-145)
[2022-07-10 09:27] LABS: Blood Urea Nitrogen 18 mg/dl (7-17); Estimated Glomerular Filt Rate 81 ml/min (>60); GFR (African American) 98 ML/MIN (>60)
[2022-07-10 09:28] LABS: Alanine Aminotransferase 22 U/L (12-78); Albumin Level 4.3 g/dl (3.5-5.0); Albumin/Globulin Ratio 1.8 (1.1-1.8); Alkaline Phosphatase 60 U/L (38-126); Anion Gap 13.4 mEq/L (5-15); Aspartate Amino Transferase 27 U/L (14-36); Bilirubin,Total 0.5 mg/dl (0.2-1.3); Calcium 8.9 mg/dl (8.4-10.2); Carbon Dioxide 30 mmol/L (22.0-30.0); Cholesterol 166 mg/dl (140-200); Globulin 2.4 g/dL (1.3-3.2); Glucose 104 mg/dl (74-100); Total Protein,Serum 6.7 g/dl (6.3-8.2); Triglycerides 117 mg/dl (30-150); VLDL Cholesterol 23 mg/dL (0-40)
[2022-07-10 09:34] LABS: Hemoglobin A1C 11.8 % (4.0-6.0)
[2022-07-10 09:58] LABS: Thyroid Stimulating Hormone 0.24 uIU/mL (0.465-4.68)
[2022-07-10 10:12] LABS: Chol/HDL Ratio 2.9 (1-3.5); HDL Cholesterol 57 mg/dl (40-60)
== END ==
PROVIDERS: PCP Family Medicine; Visit Provider Family Medicine
DX: E11.9 Type 2 diabetes mellitus without complications (principal); E78.5 Hyperlipidemia, unspecified; E03.9 Hypothyroidism, unspecified; I25.10 Atherosclerotic heart disease of native coronary artery without angina pectoris; Z79.4 Long term (current) use of insulin
CPT/HCPCS: 36415; 80053; 80061; 82043; 82570; 83036; 84443; 85025

== ENCOUNTER → 2022-07-28 10:13 | Outpatient (CLI) | payer MEDICARE, SELFPAY ==
--- NOTE | 2022-07-28 10:13 | CT_ITS ---
FINAL REPORT TECHNIQUE: Axial CT images of the abdomen were obtained with IV contrast only. Coronal reformatted images were also obtained. This study was performed with techniques to keep radiation doses as low as reasonably achievable (ALARA). Individualized dose reduction techniques using automated exposure control or adjustment of mA and/or kV according to the patient''s size were employed. CLINICAL HISTORY: luq pain FINDINGS: There is mild bibasilar atelectasis or scarring. The liver has an unremarkable appearance, without evidence of mass. The gallbladder appears normal without evidence of gallstones. There is no evidence of biliary ductal dilatation. The pancreas appears normal. The spleen size is within normal limits. Bilateral renal cysts are noted. There are moderate vascular calcifications. Bilateral common iliac stents are noted. The appendix is normal. There is no evidence of adenopathy. No abnormal fluid collection is seen. No localized inflammatory processes identified. IMPRESSION: No mass or localized inflammatory process identified. Reviewed, Interpreted and Dictated by Brandon Au III, MD Transcribed by Alexus Cruz Authenticated and [facility]
== END ==
PROVIDERS: PCP Family Medicine; Visit Provider Family Medicine
DX: R10.12 Left upper quadrant pain (principal)
CPT/HCPCS: 74160; Q9967

== ENCOUNTER → 2022-09-18 12:50 | Outpatient (CLI) | payer MEDICARE, SELFPAY ==
--- NOTE | 2022-09-18 12:51 | CT_ITS ---
FINAL REPORT TECHNIQUE: Axial imaging of the chest was obtained without contrast. Reformatted images were also obtained and reviewed.This study was performed with techniques to keep radiation doses as low as reasonably achievable, (ALARA). Individualized dose reduction technique using automated exposure control or adjustment of mA and/or kV according to the patient's size were employed. CLINICAL HISTORY: lung nodule COMPARISON: 04/03/2022 FINDINGS: There is dense calcification of the coronary arteries and aortic arch. There is no axillary adenopathy. There is no hilar or mediastinal mass or adenopathy. Heart size is normal. There is no pericardial or pleural effusion. Limited images of the upper abdomen are unremarkable. There is a partially cavitary mass in the periphery of the left lower lobe measuring 1.4 cm which is unchanged. There is some adjacent pleural thickening which is stable. More inferior 7 mm nodule is seen in the left lower lobe on image 85 of series 3 which is also unchanged. There is a stable nodule in the right lower lobe measuring 6 mm. Scarring is again seen at the left lung base. IMPRESSION: 1.4 cm peripheral left upper lobe mass which is indeterminate. Consider PET-CT for further evaluation. Reviewed, Interpreted and Dictated by Bk Singh MD Transcribed by Shante Ahn Authenticated and [facility]
== END ==
PROVIDERS: PCP Family Medicine; Visit Provider Internal Medicine Pulmonary Disease
DX: R91.8 Other nonspecific abnormal finding of lung field (principal)
CPT/HCPCS: 71250

== ENCOUNTER → 2022-10-09 08:04 | Outpatient (CLI) | payer MEDICARE, SELFPAY ==
[2022-10-09 09:09] LABS: Alanine Aminotransferase 20 U/L (12-78); Albumin Level 4.3 g/dl (3.5-5.0); Albumin/Globulin Ratio 1.8 (1.1-1.8); Alkaline Phosphatase 70 U/L (38-126); Anion Gap 11.4 mEq/L (5-15); Aspartate Amino Transferase 28 U/L (14-36); Bilirubin,Total 0.7 mg/dl (0.2-1.3); Blood Urea Nitrogen 17 mg/dl (7-17); Carbon Dioxide 30 mmol/L (22.0-30.0); Chloride 96 mmol/L (98-107); Estimated Glomerular Filt Rate 70 ml/min (>60); GFR (African American) 84 ML/MIN (>60); Globulin 2.4 g/dL (1.3-3.2); Glucose 104 mg/dl (74-100); Potassium 4.4 mmoL/L (3.5-5.1); Sodium 133 mmol/L (136-145); Total Protein,Serum 6.7 g/dl (6.3-8.2)
[2022-10-09 09:38] LABS: Thyroid Stimulating Hormone 1.67 uIU/mL (0.465-4.68)
[2022-10-09 16:33] LABS: Hemoglobin A1C 8.2 % (4.0-6.0)
[2022-10-09 21:24] LABS: Chloride 95 mmol/L (98-107)
[2022-10-09 21:25] LABS: Potassium 4.5 mmoL/L (3.5-5.1); Sodium 131 mmol/L (136-145)
[2022-10-09 21:28] LABS: Anion Gap 11.5 mEq/L (5-15); Blood Urea Nitrogen 16 mg/dl (7-17); Calcium 8.8 mg/dl (8.4-10.2); Carbon Dioxide 29 mmol/L (22.0-30.0); Estimated Glomerular Filt Rate 70 ml/min (>60); GFR (African American) 84 ML/MIN (>60); Glucose 97 mg/dl (74-100)
== END ==
PROVIDERS: Nurse Practitioner; PCP Nurse Practitioner Family; Visit Provider Family Medicine
DX: E78.2 Mixed hyperlipidemia (principal); I11.9 Hypertensive heart disease without heart failure; I25.10 Atherosclerotic heart disease of native coronary artery without angina pectoris; I42.9 Cardiomyopathy, unspecified; I65.23 Occlusion and stenosis of bilateral carotid arteries; I77.9 Disorder of arteries and arterioles, unspecified; Z95.5 Presence of coronary angioplasty implant and graft; E11.9 Type 2 diabetes mellitus without complications; E03.9 Hypothyroidism, unspecified
CPT/HCPCS: 80048; 80053; 83036; 84443

== ENCOUNTER → 2023-01-09 08:10 | Outpatient (CLI) | payer MEDICARE, SELFPAY ==
[2023-01-09 09:20] LABS: Chloride 95 mmol/L (98-107); Potassium 4.6 mmoL/L (3.5-5.1); Sodium 133 mmol/L (136-145)
[2023-01-09 09:22] LABS: Blood Urea Nitrogen 14 mg/dl (7-17); Estimated Glomerular Filt Rate 70 ml/min (>60); GFR (African American) 84 ML/MIN (>60)
[2023-01-09 09:23] LABS: Alanine Aminotransferase 19 U/L (12-78); Albumin/Globulin Ratio 1.6 (1.1-1.8); Alkaline Phosphatase 60 U/L (38-126); Anion Gap 13.6 mEq/L (5-15); Aspartate Amino Transferase 25 U/L (14-36); Bilirubin,Total 0.8 mg/dl (0.2-1.3); Calcium 8.7 mg/dl (8.4-10.2); Carbon Dioxide 29 mmol/L (22.0-30.0); Cholesterol 145 mg/dl (140-200); Globulin 2.5 g/dL (1.3-3.2); Glucose 127 mg/dl (74-100); Total Protein,Serum 6.5 g/dl (6.3-8.2); Triglycerides 116 mg/dl (30-150); VLDL Cholesterol 23 mg/dL (0-40)
[2023-01-09 09:28] LABS: Hemoglobin A1C 7.9 % (4.0-6.0)
[2023-01-09 09:35] LABS: Direct LDL Cholesterol 69.05 mg/dL (100-129)
[2023-01-09 09:53] LABS: Thyroid Stimulating Hormone 0.63 uIU/mL (0.465-4.68)
[2023-01-09 14:24] LABS: Chol/HDL Ratio 3.5 (1-3.5); HDL Cholesterol 41 mg/dl (40-60)
== END ==
PROVIDERS: PCP Nurse Practitioner Family; Visit Provider Nurse Practitioner Family
DX: E03.9 Hypothyroidism, unspecified (principal); E11.9 Type 2 diabetes mellitus without complications; E78.5 Hyperlipidemia, unspecified; I25.10 Atherosclerotic heart disease of native coronary artery without angina pectoris; Z79.4 Long term (current) use of insulin; Z79.84 Long term (current) use of oral hypoglycemic drugs; I10 Essential (primary) hypertension; Z87.891 Personal history of nicotine dependence
CPT/HCPCS: 36415; 80053; 80061; 83036; 84443

== ENCOUNTER → 2023-01-29 09:21 | Outpatient (CLI) | payer MEDICARE, OTHER, SELFPAY ==
--- NOTE | 2023-01-29 17:08 | XR_ITS ---
FINAL REPORT TECHNIQUE: Bone densitometry calculations of the lumbar spine and left hip were obtained. CLINICAL HISTORY: POST MENOPAUSAL FINDINGS: Using L1-4, the bone mineral density of the spine is 1.209 g/cm2, corresponding to T-score of 1.5 and a Z score of 4.0. This is within the range of normal. Using the left hip, the bone mineral density of the femoral neck is 0.805 g/cm2, corresponding to a T-score of -0.4 and a Z-score of 1.8. This is within the range of normal. Using the right hip, the bone mineral density of the femoral neck is 0.874 g/cm2, corresponding to a T-score of 0.2 and a Z-score of 2.4. This is within the range of normal. NOTE: T-score: Standard deviation compared with peak bone mass of young adult mean. *Following the recommendations of the International Society of Bone densitometry, classification of hip BMD is based on the lower of two T-scores; total hip or femoral neck. IMPRESSION: 1. Bone mineral density of the lumbar spine within the range of normal. 2. Bone mineral density of the left femoral neck within the range of normal. 3. Bone mineral density of the right femoral neck within the range of normal. Reviewed, Interpreted and Dictated by Rima Joyner MD Transcribed by Alexus Cruz Authenticated and [facility]
== END ==
PROVIDERS: PCP Internal Medicine; Visit Provider Internal Medicine Hematology & Oncology
DX: Z78.0 Asymptomatic menopausal state (principal); C50.212 Malignant neoplasm of upper-inner quadrant of left female breast; Z17.0 Estrogen receptor positive status [ER+]; Z79.811 Long term (current) use of aromatase inhibitors
CPT/HCPCS: 77080

== ENCOUNTER → 2023-03-20 14:47 | Outpatient (CLI) | payer MEDICARE, OTHER, SELFPAY | PROVIDERS: PCP Internal Medicine; Visit Provider Nurse Practitioner Family | DX: R19.7 Diarrhea, unspecified (principal) | CPT/HCPCS: 87045; 87205 ==

== ENCOUNTER 2023-06-28 15:09 | Outpatient (CLI) | payer MEDICARE, OTHER, SELFPAY ==
--- NOTE | 2023-06-28 15:09 | CT_ITS ---
FINAL REPORT TECHNIQUE: Axial images were obtained through the chest without contrast. CLINICAL HISTORY: 9-month follow-up COMPARISON: 09/18/2022 FINDINGS: There is a mass in the periphery of the left upper lobe, measures 1.4 cm in size. This mass was present on the prior CT examination, is somewhat altered and configuration but not in size. This is best seen on images #51 359 of series 3. There are multiple small nodular opacities present in the posterior right upper lobe, seen in images 94 through 108 of series 3. There is a small bulla present in the posterior left lower lobe. The overall appearance is essentially stable when compared to the prior CT of August 2022. The heart size is normal. There is no pericardial or pleural effusion. Limited images of the upper abdomen are unremarkable. IMPRESSION: 1.4 cm mass in the left upper lobe periphery somewhat altered and configuration but not in size when compared to the prior exam. PET/CT might be helpful for further evaluation if clinically indicated. There are multiple small nodules in the posterior right upper lobe, which are essentially stable. Small bulla present in the posterior left lower lobe. Reviewed, Interpreted and Dictated by Bk Singh MD Transcribed by Beba Fuentes Authenticated and . [facility]
== END 2023-06-28 23:59 ==
LOC: RAD 15:09
PROVIDERS: PCP Internal Medicine; Visit Provider Internal Medicine Pulmonary Disease
DX: R91.8 Other nonspecific abnormal finding of lung field (principal)
CPT/HCPCS: 71250

== ENCOUNTER 2023-09-19 09:04 | Outpatient (CLI) | payer MEDICARE, OTHER, SELFPAY ==
--- NOTE | 2023-09-19 09:08 | US_ITS ---
FINAL REPORT CLINICAL HISTORY: pt feels palp area on LT abd COMPARISON: None FINDINGS: Limited sonographic images were obtained of the soft tissues in the the left abdomen at the area of interest. There is no evidence of mass or fluid collection or obvious abdominal wall hernia. IMPRESSION: No acute findings. Should symptoms progress, consider CT or MRI. Reviewed, Interpreted and Dictated by Marika Silver MD Transcribed by Stefani Schroeder Authenticated and [facility]
== END 2023-09-19 23:59 | disposition home or self-care (01) ==
LOC: RAD 09:05
PROVIDERS: PCP Nurse Practitioner; Visit Provider Nurse Practitioner
DX: R10.9 Unspecified abdominal pain (principal)
CPT/HCPCS: 76705

== ENCOUNTER 2023-12-25 08:25 | Outpatient (CLI) | payer MEDICARE, OTHER, SELFPAY ==
--- NOTE | 2023-12-25 08:30 | MM_ITS ---
PROCEDURE INFORMATION: Exam: MG Bilateral Screening 3D Mammography Exam date and time: 12/25/2023 8:23 AM Age: 78 years old Clinical indication: Screening examination TECHNIQUE: Imaging protocol: Bilateral Screening tomosynthesis and 2D mammography including computer-aided detection (CAD) when performed. COMPARISON: Screening mammogram 10/13/2021 FINDINGS: MAMMOGRAPHY: Breast composition: There are scattered areas of fibroglandular density. Mass: No suspicious masses. Architectural distortion: Postsurgical changes are noted right breast. Calcifications: No suspicious calcifications. Asymmetric density: None. Skin thickening: None. Axillary adenopathy: None. IMPRESSION: No mammographic evidence of malignancy. Annual screening is recommended unless otherwise clinically indicated. ASSESSMENT: BI-RADS Category 2: Benign.
== END 2023-12-25 23:59 | disposition home or self-care (01) ==
LOC: RAD 08:26
PROVIDERS: PCP Nurse Practitioner; Visit Provider Nurse Practitioner
DX: Z12.31 Encounter for screening mammogram for malignant neoplasm of breast (principal)
CPT/HCPCS: 77063; 77067

== ENCOUNTER 2024-02-05 08:58 | Outpatient (CLI) | payer MEDICARE, OTHER, SELFPAY ==
--- NOTE | 2024-02-05 09:02 | XR_ITS ---
FINAL REPORT CLINICAL HISTORY: catching , arthritis, pain with movement since Sunday, no known trauma FINDINGS: Right hip Three views were obtained. There is no fracture or dislocation. There are mild degenerative changes. No soft tissue abnormality is identified. IMPRESSION: No acute process. Authenticated and [facility]
== END 2024-02-05 23:59 | disposition home or self-care (01) ==
LOC: RAD 08:59
PROVIDERS: PCP Nurse Practitioner; Visit Provider Nurse Practitioner
DX: M25.551 Pain in right hip (principal); M16.11 Unilateral primary osteoarthritis, right hip
CPT/HCPCS: 73502

== ENCOUNTER 2024-02-29 12:22 | Outpatient (CLI) | payer MEDICARE, OTHER, SELFPAY ==
[2024-02-29 13:07] VITALS: BMI 32.3
--- NOTE | 2024-02-29 13:17 | ECG_ITS ---
APPROVED REPORT Exam: Resting ECG HR:53 bpm ECG Measurements Heart Rate 53 AXES IN 156 P 37 QRSd 98 QRS 40 QT 439 T -4 QTc 422 Conclusion SINUS BRADYCARDIA NONSPECIFIC T-WAVE ABNORMALITY BORDERLINE ECG UNCONFIRMED REPORT Electronically signed by : Rick Landaverde MD 03/02/2024 11:17:36
[2024-02-29 13:31] LABS: Anion Gap 14.2 mEq/L (5-15); Blood Urea Nitrogen 19 mg/dl (7-17); Calcium 8.9 mg/dl (8.4-10.2); Carbon Dioxide 27 mmol/L (22.0-30.0); Chloride 89 mmol/L (98-107); Creatinine Clearance Estimated 67 mL/min (50-200); Estimated Glomerular Filt Rate 81 ml/min (>60); GFR (African American) 98 ML/MIN (>60); Glucose 155 mg/dl (74-100); Potassium 4.2 mmoL/L (3.5-5.1); Sodium 126 mmol/L (136-145)
[2024-02-29 14:32] LABS: Basophils # 0.1 K/mm3 (0-0.2); Basophils % 0.9 % (0.1-2.0); Eosinophils # 0.4 K/mm3 (0.0-0.4); Eosinophils % 4.3 % (0.1-12.0); Hematocrit 36.5 % (37.0-47.0); Hemoglobin 12.5 g/dL (12.2-16.2); Lymphocytes # 1.3 K/mm3 (0.7-4.5); Lymphocytes % 14.8 % (10-50); Mean Corpuscular HGB Conc 34.3 g/dL (31.8-35.4); Mean Corpuscular Volume 87.5 fl (81-99); Mean Platelet Volume 8.1 fl (7.4-10.4); Monocytes # 0.5 K/mm3 (0.1-1.0); Monocytes % 5.8 % (1.7-9.3); Neutrophils # 6.5 K/mm3 (1.8-7.8); Neutrophils % 74.2 % (37.0-80.0); Platelet Count 215 K/mm3 (142-424); Red Blood Count 4.17 M/mm3 (4.20-5.40); Red Cell Distribution Width 13.6 % (11.5-17.5); White Blood Count 8.8 K/mm3 (4.8-10.8)
== END 2024-02-29 23:59 | disposition home or self-care (01) ==
LOC: PREOP 12:23
PROVIDERS: Nurse Anesthetist, Certified Registered; PCP Nurse Practitioner; Visit Provider Orthopaedic Surgery
DX: Z01.810 Encounter for preprocedural cardiovascular examination (principal); I25.10 Atherosclerotic heart disease of native coronary artery without angina pectoris; R00.1 Bradycardia, unspecified; R94.31 Abnormal electrocardiogram [ECG] [EKG]
CPT/HCPCS: 80048; 85025; 93005

== ENCOUNTER 2024-03-03 09:12 | Day surgery (SDC) | payer MEDICARE, OTHER, SELFPAY ==
[2024-02-29 13:21] VITALS: BMI 32.3
[2024-03-03 09:44] VITALS: BP 155/44; PULSE 58; RESP 18; TEMP 36.6; O2SAT 96
[2024-03-03 10:09] LABS: POC Glucose,Bedside 211 (70-110)
[2024-03-03] MEDS: LACTATED RINGERS 1000ML 1,000 ML 100 ML IV (10:13)
--- NOTE | 2024-03-03 10:33 | EXP.ANES.CKL ---
[facility] Disclaimer: The information contained in this section may have been updated after the patient was seen, as this information can be updated by other users. Medical History CAD (coronary artery disease) Diabetes Abnormality of right breast on screening mammogram Asthma Abdominal pain, LUQ (left upper quadrant) LV dysfunction Vaginitis and vulvovaginitis Overactive bladder Allergic rhinitis Stopped smoking with greater than 30 pack year history Dyspnea on exertion Multiple pulmonary nodules Breast CA Surgical History History of intravascular stent placement History of breast surgery History of arthroscopy of shoulder History of knee surgery Family History Other Diabetes Social History (Updated 03/03/24 @ 09:54 by Angela Mcguire RN) Smoking Status: Former smoker tobacco type: cigarettes packs per day: 1 how long ago did patient quit smoking: stopped smoking 20 years ago alcohol intake: never substance use type: denies use current occupational status: retired Travel in the last 8 weeks: None household members: children housing: house current occupational exposures/hazards: No caffeine: Yes [facility] Anesthesia Checklist Patient Identification Patient Identification: Verbal (Name & ) Structural Data Admitted From: Home Planned Operative Procedure/s: r hip injection Consent for Planned Operative Procedure(s) Verified: Yes NPO Status Verified Time NPO: 00:00 Additional verifications Anesthesia Reactions: No Hx Blood Transfusions: No Blood Transfusion Reaction: No Airway Assessment Mallampati Score:: Class II C-Spine Mobility Assessed: Yes TMJ Mobility Assessed: Yes Dentition: Dentures-good fit Neurological Assessment Level of Consciousness: Awake, Alert and Appropriate Anesthesia Plan Anesthesia Risk discussed: Yes Anesthesia Plan: Verified ASA Class: III Anesthesia Type: MAC
[2024-03-03] MEDS: TRIAMCINOLONE ACET 40MG/ML VIAL 80 MG (11:54)
[2024-03-03] MEDS: LIDOCAINE 1% 10ML MDV 10 ML (11:55)
--- NOTE | 2024-03-03 12:06 | XR_ITS ---
FINAL REPORT CLINICAL HISTORY: HIP INJECTION IN OR time- 4.5 dose- 1.27 mGy FINDINGS: Fluoroscopic imaging was provided for the OR. 4.5 seconds of fluoroscopy time was used. 1.27 mGy. IMPRESSION: Fluoroscopy for the OR. Reviewed, Interpreted and Dictated by Brandon Au III, MD Transcribed by Shante Ahn Authenticated and [facility]
--- NOTE | 2024-03-03 12:06 | EXP.OP.NOTE ---
Date of procedure: 03/03/24 Pre-op Diagnosis:: Right hip osteoarthritis Post-op Diagnosis:: Same Procedure performed:: Right hip injection with arthrogram x-ray guidance for needle placement Surgeon:: Issa Devi DO Psychologist Experimental(s):: Marky LEPE POWERHOUSE TENDER:: Negro Hewitt Anesthesia: MAC Estimated blood loss (mL): 0 Operative findings:: See dictation Operative note:: Patient identified preoperatively. Right hip marked with yes and my initials. Then taken the operating room placed upon the radiolucent bed. Patient given sedation. Right hip was then prepped and draped in normal sterile fashion. Once prepped and draped final operative timeout performed to identify proper patient procedure and extremity. Everyone involved in the case agreed. No counter indications to beginning. X-ray was brought into identify the right hip once identified the 18-gauge spinal needle was directed into the proper trajectory into the hip capsule. Once within the hip capsule arthrogram was performed to confirm needle placement within the hip capsule once within the hip capsule. Injection was performed 80 mg Kenalog 3 cc 1% lidocaine Needle removed Band-Aid placed. Patient waken sedation taken recovery stable condition. Condition: stable Disposition: PACU Complications:: None apparent
[2024-03-03 12:08] VITALS: BP 127/56; PULSE 58; RESP 16; TEMP 36.3; O2SAT 98
[2024-03-03 12:18] VITALS: BP 140/58; PULSE 56; RESP 16; O2SAT 98
[2024-03-03 12:28] VITALS: BP 140/61; PULSE 57; RESP 18; O2SAT 98
[2024-03-03 12:38] VITALS: BP 134/64; PULSE 55; RESP 18; O2SAT 97
== END 2024-03-03 12:38 | disposition home or self-care (01) ==
PROVIDERS: PCP Nurse Practitioner; Visit Provider Orthopaedic Surgery
PROC: (CPT 20610; principal; 2024-03-03 11:00)
DX: M16.11 Unilateral primary osteoarthritis, right hip (principal); E11.8 Type 2 diabetes mellitus with unspecified complications; Z79.84 Long term (current) use of oral hypoglycemic drugs; Z79.4 Long term (current) use of insulin
CPT/HCPCS: 20610; 77002; 73502; 76000; 82962; J3301; J7120

== ENCOUNTER 2024-04-18 15:08 | Outpatient (CLI) | payer MEDICARE, OTHER, SELFPAY ==
--- NOTE | 2024-04-18 15:09 | CT_ITS ---
FINAL REPORT TECHNIQUE: Axial CT without contrast. Coronal and sagittal images were obtained and reviewed. This study was performed with techniques to keep radiation doses as low as reasonably achievable, (ALARA). Individualized dose reduction techniques using automated exposure control or adjustment of mA and/or kV according to the patient's size were employed. CLINICAL HISTORY: 9 mth F/U left upper lobe mass COMPARISON: 06/28/2023 FINDINGS: CT CHEST without contrast There is a focal ground-glass opacity in the posterior left lower lobe which is stable. An oval nodular density in the left upper lobe on images 23 and 24 measures 31 x 9 mm and previously measured 28 x 9 mm. It is not significantly changed. Nodular scarring in the posterior right upper lobe is noted. There is emphysematous change. There is no adenopathy. No pleural effusions are seen. Limited images of the upper abdomen demonstrate no acute findings. IMPRESSION: Stable multifocal pulmonary opacities, most suspicious located in the left upper lobe. Continued follow-up recommended in 9 months. Reviewed, Interpreted and Dictated by Marika Silver MD Transcribed by Stefani Schroeder Authenticated and . [facility]
== END 2024-04-18 23:59 | disposition home or self-care (01) ==
LOC: RAD 15:09
PROVIDERS: PCP Nurse Practitioner; Visit Provider Internal Medicine Pulmonary Disease
DX: R91.8 Other nonspecific abnormal finding of lung field (principal)
CPT/HCPCS: 71250

== ENCOUNTER 2024-08-04 09:12 | Outpatient (CLI) | payer MEDICARE, OTHER, SELFPAY ==
[2024-08-04 09:39] LABS: Basophils # 0.1 K/mm3 (0-0.2); Basophils % 0.7 % (0.1-2.0); Eosinophils # 0.4 Kmm3 (0.0-0.4); Hematocrit 35.5 % (37.0-47.0); Hemoglobin 11.7 g/dL (12.2-16.2); Lymphocytes # 1.1 K/mm3 (0.7-4.5); Lymphocytes % 10.5 % (10-50); Mean Corpuscular Hemoglobin 29.5 pg (27.0-31.2); Mean Corpuscular Volume 89.4 fl (81-99); Mean Platelet Volume 10.6 fl (7.4-10.4); Monocytes # 0.8 K/mm3 (0.1-1.0); Monocytes % 7.6 % (1.7-9.3); Neutrophils # 7.8 K/mm3 (1.8-7.8); Neutrophils % 76.8 % (37.0-80.0); Nucleated Red Blood Cells # 0 10^3/uL; Nucleated Red Blood Cells % 0 %; Platelet Count 186 K/mm3 (142-424); Red Blood Count 3.97 M/mm3 (4.20-5.40); Red Cell Distribution Width 13.1 % (11.5-17.5); White Blood Count 10.2 K/mm3 (4.8-10.8)
[2024-08-04 10:04] LABS: Alanine Aminotransferase 16 U/L (12-78); Alkaline Phosphatase 65 U/L (38-126); Aspartate Amino Transferase 24 U/L (14-36); Bilirubin,Direct 0.2 mg/dl (0.0-0.4); Bilirubin,Indirect 0.4 mg/dL (0.0-0.9); Bilirubin,Total 0.6 mg/dl (0.2-1.3); Bilirubin,Unconjugated 0.5 mg/dL (0.0-1.1); Calcium 9.2 mg/dl (8.4-10.2); Chloride 93 mmol/L (98-107); Chol/HDL Ratio 3.3 (1-3.5); Cholesterol 145 mg/dl (140-200); Glucose 235 mg/dl (74-100); HDL Cholesterol 44 mg/dl (40-60); Magnesium 1.7 mg/dl (1.6-2.3); Potassium 4.9 mmoL/L (3.5-5.1); Sodium 129 mmol/L (136-145); Triglycerides 175 mg/dl (30-150); VLDL Cholesterol 35 mg/dL (0-40)
[2024-08-04 10:05] LABS: Anion Gap 9.9 mEq/L (5-15); Blood Urea Nitrogen 29 mg/dl (7-17); Carbon Dioxide 31 mmol/L (22.0-30.0)
[2024-08-04 10:06] LABS: Albumin Level 4.4 g/dl (3.5-5.0); Estimated Glomerular Filt Rate 69 ml/min (>60); GFR (African American) 84 ML/MIN (>60); Total Protein,Serum 6.6 g/dl (6.3-8.2)
[2024-08-04 10:20] LABS: Free T4 (Free Thyroxine) 1.12 ng/dl (0.78-2.19)
[2024-08-04 10:34] LABS: Thyroid Stimulating Hormone 1.74 uIU/mL (0.465-4.68)
[2024-08-04 11:00] LABS: Hemoglobin A1C 9.3 % (4.0-6.0)
== END 2024-08-04 23:59 | disposition home or self-care (01) ==
LOC: LAB 09:13
PROVIDERS: PCP Nurse Practitioner; Visit Provider Nurse Practitioner
DX: E78.2 Mixed hyperlipidemia (principal); Z13.220 Encounter for screening for lipoid disorders; Z13.6 Encounter for screening for cardiovascular disorders; E11.9 Type 2 diabetes mellitus without complications; Z79.4 Long term (current) use of insulin; E03.9 Hypothyroidism, unspecified; I25.10 Atherosclerotic heart disease of native coronary artery without angina pectoris; I42.9 Cardiomyopathy, unspecified; I65.23 Occlusion and stenosis of bilateral carotid arteries; I11.9 Hypertensive heart disease without heart failure
CPT/HCPCS: 36415; 80048; 80061; 80076; 83036; 83735; 84439; 84443; 85025

== ENCOUNTER 2024-12-04 09:48 | Outpatient (CLI) | payer MEDICARE, OTHER, SELFPAY ==
--- OUTSIDE RECORDS SUMMARY | 2024-12-04 09:54 | XMS_ITS | Clinical Summary ---
Author Organization [facility] Address [address] [place] [address], [address] [place] [address] Care Team Providers Care Communications Clerk Name Role Phone System, Referring Not In Primary Care Provider U navailable Social History Tobacco Use Types Packs/Day Years Used Date Smoking Tobacco: Never Assessed Comments Unknown Sex and Gender Information Value Date Recorded Sex Assigned at Not on file Legal Sex Female 3:08 AM EST Gender Identity Not on file Sexual Orientation Not on file Plan of Treatment Not on file Care Teams Communications Clerk Relationship Specialty Start Date End Date System, Referring Not In PCP - General 04/13/10
--- OUTSIDE RECORDS SUMMARY | 2024-12-04 09:54 | XMS_ITS | Clinical Summary ---
Author Organization [employer] ([place], [place], [place], [place]) Address [address] [place] [address] Care Team Providers Care Technical Producer Name Role Phone Alec Sutherland MD Primary Care Provider [phone] Allergies No known active allergies Medications aspirin 81 MG EC tablet Take 1 tablet (81 mg total) by mouth daily. Active atenoloL (TENORMIN) 100 MG tablet Take 1 tablet (100 mg total) by mouth daily. Active valsartan (DIOVAN) 40 MG tablet Take 1 tablet (40 mg total) by mouth daily. Active triamterene-hy droCHLOROthiaz nathan (DYAZIDE) 37.5-25 mg per capsule Take 1 capsule by mouth every morning. Active levothyroxine (SYNTHROID, LEVOTHROID) 100 MCG tablet Take 1 tablet (100 mcg total) by mouth Every morning on an empty stomach. Active simvastatin (ZOCOR) 20 MG tablet Take 1 tablet (20 mg total) by mouth nightly. Active metFORMIN (GLUCOPHAGE-XR ) 750 MG 24 hr tablet Take 1 tablet (750 mg total) by mouth daily. Active insulin glargine (LANTUS, SEMGLEE) 100 unit/mL injection Inject 45 Units subcutaneously nightly Use as directed . Active amLODIPine (NORVASC) 5 MG tablet Take 1 tablet (5 mg total) by mouth daily. Active clopidogreL (PLAVIX) 75 mg tablet Take 1 tablet (75 mg total) by mouth daily. Active lisinopriL (PRINIVIL,ZEST RIL) 20 MG tablet Take 2 tablets (40 mg total) by mouth daily. Active insulin glargine (LANTUS, SEMGLEE) 100 unit/mL (3 mL) InPn Inject 50 Units subcutaneously nightly. Active metFORMIN (GLUCOPHAGE-XR ) 500 MG 24 hr tablet Take 2 tablets (1,000 mg total) by mouth daily With evening meal . Active oxybutynin (DITROPAN-XL) 5 MG 24 hr tablet Take 1 tablet (5 mg total) by mouth daily. Active anastrozole (ARIMIDEX) 1 mg tablet Take 1 tablet (1 mg total) by mouth daily. 90 tablet 3 4 Active Active Problems Problem Noted Date Diagnosed Date Malignant neoplasm of upper- inner quadrant of left breast in female, estrogen receptor positive 02/03/2022 Cancer Staging:Pathologic stage from 02/02/2022: pT1b, pN0, cM0, ER+, MS+, HER2- - Signed by Hanna Campbell MD on 02/03/2022 CAD (coronary artery disease) 01/24/2022 Overview (01/24/2022): S/p stents Primary hypertension 01/24/2022 Diabetes mellitus, type 2 01/24/2022 Hypothyroidism 01/24/2022 PONV (postoperative nausea and vomiting) 022 Immunizations Name Administration Dates Next Due Pneumococcal, Nos 09/02/2015 Td 7+ years, (TDVAX) 2 Lf te tanus toxoid preservative free 06/07/1996 Social History Tobacco Use Types Packs/Day Years Used Date Smoking Tobacco: Former Smokeless Tobacco: Never Tobacco Cessation:Counseling Given: Not Answered Alcohol Use Standard Drinks/Week Comments Never 0 (1 standard drink = 0.6 oz pur e alcohol) Food Insecurity Answer Date Recorded Food run out past 12 months Not on file 04/02 Food did not last past 12 months Not on file 04/13/2023 Employment Answer Date Recorded Help finding and keeping a job Not on file 0 04/13/2023 Family and Community Support Answer Miguelangel e Recorded Help with Day to Day Activities Not on file 04/13/2023 Feeling Lonely or Isolated Not on file 04/13 Educational Attainment Answer Date Xavier rded Speak language other than Khmer at home Not on file 04/13/2023 Want help with school or training Not on file 04/13/2023 Substance Use Answer Date Recorded Used prescription meds for non-medical reasons N ot on file 04/13/2023 Used illegal drugs past 12 months Not on file 04/13/2023 Comments No Sex and Gender Information Value Date Recorded Sex Assigned at Not on file Legal Sex Female 3:32 PM CDT Gender Identity Not on file Sexual Orientation Not on file Last Filed Vital Signs Vital Sign Reading Time Taken Comments Blood Pressure 190/84 09/20/2023 10:27 AM EDT Pulse 60 09/20/2023 10:27 AM EDT Temperature 36.7 C (98.1 F) 09/20/2023 10:27 AM EDT Respiratory Rate 16 09/20/2023 10:27 AM EDT Oxygen Saturation 98% 09/20/2023 10:27 AM EDT Inhaled Oxygen Concentration - - Weight 90.7 kg (200 lb) 09/20/2023 10:27 AM EDT Height 167.6 cm (5' 5.98 ) 09/20/2023 10:27 AM E DT Body Mass Index 32.3 09/20/2023 10:27 AM EDT Plan of Treatment Health Maintenance Due Date Last Done Comments Medicare Initial AWV [id number] 04/03/1901 DXA SCAN 1945 Diabetic Kidney Health Evalu ation (KED) 1946 Diabetic Eye Exam 1956 Depression Screening (12+) 1958 Hepatitis C Screening 1964 Pneumococcal 50+ years (1 of 2 - PCV) 1965 Shingles Vaccine (Zoster) (1 of 2) 1996 DTAP/TDAP/TD VACCINES (2 - T d or Tdap) 06/07/2006 06/07/1996 Respiratory Syncytial Virus (RSV) Adult or (1 - 1-dose 75+ series) 2021 Hemoglobin A1C 01/24/2022 COVID-19 VACCINE (5 - 2023-2 5 season) 2023 09/09/2021, 12/29/2020, 05/27/2020, Additional history exists Falls Risk Screening 04/02/2024 Tobacco Cessation Counseling and Screening (12+) 09/19/2024 09/20/2023 Influenza Vaccine (#1) 2024 Medical Devices Implanted Type Area Drier And Grinder Tender Device Identifier Shelf Expiration Date Model / Serial / Lot Joints Joints Left: Knee Stents-Coronar y Stents-Isiah nary Insurance [facility] [employer] O MAP Care Teams Technical Producer Relationship Specialty Start Date End Date Alec Sutherland MD [address] [place] [address] PCP - General Family Medicine 09/20/23
--- OUTSIDE RECORDS SUMMARY | 2024-12-04 09:54 | XMS_ITS | Clinical Summary ---
Author Organization [facility] Address [address] [place] [address] Care Team Providers Care Tag Press Operator Name Role Phone Unavailable Primary Care Provider Unavailabl e Social History Tobacco Use Types Packs/Day Years Used Date Smoking Tobacco: Never Assessed Abuse Screen Answer Date Recorded Unsafe at Home or Work/School Not on file Feels Threatened by Someone? Not on file 12/2022 Does Anyone Keep You from Co ntacting Others or Doint Things Outside the Home? Not on file 01/08/2023 Physical Sign of Abuse Present Not on file 1 Housing Stability Answer Date Recorded Current Living Arrangements Not on file 12/2022 Potentially Unsafe Housing Conditions Not on jayne e 01/08/2023 Family and Community Support Answer Miguelangel e Recorded Help with Day-to-Day Activities Not on file 01/08/2023 Lonely or Isolated Not on file 01/08/2023 Employment Answer Date Recorded Do you want help finding or keeping work or a yuri b? Not on file 01/08/2023 Disabilities Answer Date Recorded Concentrating, Remembering, or Making Decisions Difficulty Not on file 01/08/2023 Doing Errands Independently Difficulty Not on fi le 01/08/2023 Education Answer Date Recorded Help with school or training? Not on file Preferred Language Not on file 01/08/2023 Comments Unknown Sex and Gender Information Value Date Recorded Sex Assigned at Not on file Legal Sex Female 11:44 AM EDT Gender Identity Not on file Sexual Orientation Not on file Plan of Treatment Health Maintenance Due Date Last Done Comments ANNUAL PHYSICAL 1945 DXA SCAN 1945 HEPATITIS C SCREENING 1946 TDAP/TD VACCINES (1 - Tdap) 1965 Pneumococcal Vaccine 50+ (1 of 1 - PCV) 1996 ZOSTER VACCINE (1 of 2) 1996 RSV Vaccine - Adults (1 - 1-dose 75+ series) 2 COVID-19 Vaccine (2023- season) 2024 INFLUENZA VACCINE 12/31/2024 Insurance
--- OUTSIDE RECORDS SUMMARY | 2024-12-04 09:54 | XMS_ITS | Encounter Summary ---
Author Organization [employer] ([place], [place], [place], [place]) Address [address] [place] [address] Care Team Providers Care Skin Care Consultant Name Role Phone Case, Fang Dodson RN Unavailable Unavailable Sidney Morris [facility] Primary Care Provider Unavailable Alec Sutherland MD Primary Care Provider [phone] Reason for Referral * Mammography (Routine) - Closed Specialty Diagnoses / Procedures Referred By Contac t Referred To Contact Diagnoses Personal history of malignant neoplasm of breast Procedures MM digital mammo diagnostic left Jose Ryder MD [address] [place] [phone] Phone: tel: fax: Referral ID Status Reason Start Date Expiration Date Visits Re quested Visits Authorized [id number] Closed 08/03/2022 01/30/2023 1 1 Encounter Details Date Type Department Care Team (Late st Contact Info) Description 02/02/2022 Outside Orders [facility] Breast Care [facility] Dequan [facility] [address] [place] [address] Jose Ryder MD [address] [place] [phone] Personal history of malignant neoplasm of breast (Primary Dx) Social History Tobacco Use Types Packs/Day Years Used Date Smoking Tobacco: Former Smokeless Tobacco: Never Alcohol Use Standard Drinks/Week Comments Never 0 (1 standard drink = 0.6 oz pur e alcohol) Comments Unknown Sex and Gender Information Value Date Recorded Sex Assigned at Not on file Legal Sex Female 3:32 PM CDT Gender Identity Not on file Sexual Orientation Not on file COVID-19 Exposure Response Date Recorded In the last 10 days, have yo u been in contact with someone who was confirmed or suspected to have Coronavirus/COVID-19? No / Unsure 01/24/2022 8:19 AM EDT documented as of this encounter Plan of Treatment Not on file documented as of this encounter Results * MM digital mammo diagnostic left (08/03/2022 9:23 AM EDT) Anatomical Region Laterality Modality Breast Left Mammography 08/03/2022 9:29 AM EDT Impressions 08/03/2022 9:31 AM EDT FINAL IMPRESSION: ACR BI-RADS 2: Benign findings. RECOMMENDATIONS: Bilateral diagnostic mammography is due in October 2022 At our facility, a [place] marker is positioned over a visible skin lesion and a linear marker is The results and recommendations were discussed with the patient on the day of her appointment. In addition, a written report in lay terms was given to the patient. Patient information was entered into a reminder system with a target due date for the next mammogram. Narrative 08/03/2022 9:31 AM EDT PROCEDURE: Left diagnostic mammogram with Digital Breast Tomosynthesis (DBT). REASON FOR EXAM: First postoperative examination posterior left upper inner quadrant lumpectomy on January 24, 2022 FAMILY HISTORY: No family history of breast cancer COMPARISON STUDY: [facility] December 2021, December 2021, October 2021, September 2021, August 2020 FINDINGS: Craniocaudal and mediolateral oblique images of the left breast were obtained in 2D and DBT modes. Synthesized views were reconstructed from DBT data. The breast tissue has pattern b (scattered fibroglandular densities). New postsurgical changes are present. Otherwise, there is no evidence of dominant mass, architectural distortion, or suspicious calcifications. This examination was reviewed with the benefit of computer aided detection (CAD). us Jose Ryder MD IMG MAMMOGRAPHY ORDERABLES F inal Result documented in this encounter Visit Diagnoses Diagnosis Personal history of malignant neoplasm of breast- Primary Personal history of malignant neoplasm of breast documented in this encounter Care Teams Skin Care Consultant Relationship Specialty Start Date End Date Sidney Morris PCP - General 02/01/23 02/01/23 [facility], Provider Not In The System, [place] [address] PCP - General 02/27/23 09/19/23 Alec Sutherland MD [address] [place] [address] PCP - General Family Medicine 09/20/23 Fang Andrade, RN Nurse Navigator 04/17/22 08/14/23 documented as of this encounter
--- OUTSIDE RECORDS SUMMARY | 2024-12-04 09:54 | XMS_ITS | Referral Summary ---
Author Organization [employer] ([place], [place], [place], [place]) Address [address] [place] [address] Care Team Providers Care Reinforcing Steel Placer Name Role Phone Alec Sutherland MD Primary Care Provider [phone] Allergies No known active allergies Medications aspirin [...] stage from 02/02/2022: pT1b, pN0, cM0, ER+, DC+, HER2- - Signed by Hanna Campbell MD [...] Date Xavier rded Speak language other than Slovak at home Not on file 04/13/2023 Want [...] 09/20/2023 10:27 AM EDT Plan of Treatment Not on file Medical Devices Implanted Type Area Lamp Decorator Device Identifier Shelf Expiration Date Model / Serial / Lot Joints Joints Left: Knee Stents-Coronar y Stents-Isiah nary [facility] Care Teams Reinforcing Steel Placer Relationship Specialty Start Date End Date Alec Sutherland MD [address] [place] [address] PCP - General Family Medicine 09/20/23
--- OUTSIDE RECORDS SUMMARY | 2024-12-04 09:54 | XMS_ITS | Clinical Summary ---
Author Organization [facility] Address [address] [place] [address] Care Team Providers Care Solvent Plant Operator Name Role Phone Unavailable Primary Care Provider Unavailabl e Social History Tobacco Use Types Packs/Day Years Used Date Smoking Tobacco: Never Assessed Comments Unknown Sex and Gender Information Value Date Recorded Sex Assigned at Not on file Legal Sex Female 8:22 PM EDT Gender Identity Not on file Sexual Orientation Not on file Plan of Treatment Health Maintenance Due Date Last Done Comments [facility]-Bone Density Scan 1945 [facility]-Depression Screening 1946 [facility]-Hepatitis C Screening 1946 [facility]-Medicare Annual Wellness (AWV) 1945 [facility]-Infant/Child/Adol SDOH Screenings 1945 [facility]- SDOH Screenings 1964 [facility]-Adult SDOH Screenings 1964 [facility]-Pneumococcal Vaccine: 50+ Years (1 of 1 - PCV) 1996 09/02/2015 [facility]-Zoster Vaccines (1 of 2) 1996 [facility]-DTaP,Tdap,and Td Vaccines (1 - Tdap) 06/08/1996 06/07/1996 [facility]-RSV Vaccine: 60+ Years or (1 - 1-dose 75+ series) 2021 [id number] Vaccine ( season) 2023 03/15/2022, 09/09/2021, 12/29/2020, Additional history exists [facility]-Influenza Vaccine (#1) 2024 HPV Vaccines Aged Out No longer eligi ble based on patient's age to complete this topic [facility]-HIB Vaccines Aged Out No longer e ligible based on patient's age to complete this topic [facility]-Hepatitis A Vaccines Aged Out No longer eligible based on patient's age to complete this topic [facility]-IPV Vaccines Aged Out No longer e ligible based on patient's age to complete this topic [facility]-Rotavirus Vaccines Aged Out No lo nger eligible based on patient's age to complete this topic Insurance [employer]
[2024-12-04 10:12] LABS: Blood Urea Nitrogen 16 mg/dl (7-17); Creatinine,Serum 0.90 mg/dl (0.52-1.04); Estimated Glomerular Filt Rate 61 ml/min (>60); GFR (African American) 73 ML/MIN (>60)
--- NOTE | 2024-12-04 10:15 | CT_ITS ---
FINAL REPORT TECHNIQUE: Multiple axial CT sections were performed from the foramen magnum to the vertex. Coronal and sagittal reformatted images were also obtained. Precontrast and postcontrast injection images were obtained. This study was performed with technique to keep radiation doses as low as reasonably achievable, (ALARA). Individualized dose reduction techniques using automated exposure control or adjustment of mA and/or kV according to the patient size were employed. CLINICAL HISTORY: rule out stroke syncope, delta COMPARISON: None FINDINGS: The ventricles are normal in size. Mild to diffuse changes of atrophy are present. There is no evidence of hemorrhage. No masses are identified. No extra-axial fluid collection is seen. The sinuses are normal. No osseous abnormality is seen on the bone window images. Postcontrast images demonstrate no abnormal enhancement. IMPRESSION: Mild atrophy, otherwise unremarkable CT of the head with and without contrast. Reviewed, Interpreted and Dictated by Bk Singh MD Transcribed by Beba Fuentes Authenticated and [facility]
--- NOTE | 2024-12-04 10:30 | CT_ITS ---
FINAL REPORT TECHNIQUE: NASCET technique utilized for stenosis evaluation. CTA of the neck and head were performed using axial images from the thoracic inlet to the vertex of the head. Multiplanar reconstructions in the sagittal and coronal planes were subsequently performed. This study was performed with techniques to keep radiation doses as low as reasonably achievable (ALARA). Individualized dose reduction techniques using automated exposure control or adjustment of mA and/or kV according to the patient's size were employed. CLINICAL HISTORY: syncope,delta COMPARISON: None FINDINGS: CTA NECK SOFT TISSUES RIGHT CAROTID: Extensive vascular calcifications are present at the right carotid bifurcation. There is significant narrowing of the right internal carotid artery with at least 70% luminal diameter stenosis. The remainder of the cervical carotid artery is normal. LEFT CAROTID: Extensive vascular calcifications are present at the left carotid bifurcation. There is significant narrowing of the left internal carotid artery with at least 85% luminal diameter stenosis. The remainder of the cervical carotid artery is normal. VERTEBRALS: The vertebrals are patent with a dominant right vertebral artery. No significant stenosis is present. IMPRESSION: Significant stenoses of the carotid bifurcations bilaterally, greater on the left than on the right as described above. CTA HEAD: CTA of the intracranial vessels reveals normal flow in the intracranial portions of the carotid arteries. There is no significant segmental stenosis noted of the anterior or posterior intracranial circulation. No evidence of aneurysm is identified. IMPRESSION: No significant segmental stenosis of the intracranial vessels, and no aneurysm is identified. Reviewed, Interpreted and Dictated by Bk Singh MD Transcribed by Beba Fuentes Authenticated and [facility]
[2024-12-04] MEDS: 0.9 % SODIUM CHLORIDE 50 ML VIAL IV (11:09)
[2024-12-04] MEDS: SODIUM CHLORIDE 0.9% 10ML SYR (RAD ONLY) 10 ML IV (11:09)
[2024-12-04] MEDS: IOPAMIDOL-370 (76%);100ML BOTTLE 100 ML IV (11:09)
== END 2024-12-04 23:59 | disposition home or self-care (01) ==
LOC: RAD 09:48
PROVIDERS: PCP Family Medicine; Visit Provider Nurse Practitioner
DX: I65.23 Occlusion and stenosis of bilateral carotid arteries (principal); G31.9 Degenerative disease of nervous system, unspecified; I25.10 Atherosclerotic heart disease of native coronary artery without angina pectoris; I77.9 Disorder of arteries and arterioles, unspecified; I11.9 Hypertensive heart disease without heart failure; R55 Syncope and collapse; Z71.1 Person with feared health complaint in whom no diagnosis is made
CPT/HCPCS: 36415; 70470; 70498; 82565; 84520; Q9967

== ENCOUNTER 2024-12-10 07:44 | Outpatient (CLI) | payer MEDICARE, OTHER, SELFPAY ==
--- NOTE | 2024-12-10 | CA_ITS ---
APPROVED REPORT Exam: Pharmacologic Technologist: Tiffanie Bear Stress Nurse: Abby Dean Ht: 5 ft 9 in Wt: 190 lbs BSA: 2.02 m2 HR: 64 bpm BP: 181/65 mmHg Stress Test Details Test: Lexiscan HR Resting HR: 64 bpm Max Heart Rate (APMHR): 142.667776 bpm Max HR Achieved: 82 bpm Target HR (85% APMHR): 120.079762 bpm % of APMHR: 57.75 Recovery HR: 75 bpm BP Resting BP: 181.0/65.0 mmHg Max BP: 181.0/65.0 mmHg Recovery BP: 151.0/75.0 mmHg ECG Resting ECG: Sinus rhythm, PAC/PVC Stress ECG Conclusion Lungs CTA prior to exam. Symptoms: Nausea Arrhythmias/Ectopy: PVC ST-T Changes: Less than 0.[address] segment changes. Conclusion: Non-diagnostic ECG/Lexiscan Electronically signed by : Adri Salgado MD 12/10/2024 11:47:34
--- OUTSIDE RECORDS SUMMARY | 2024-12-10 07:46 | XMS_ITS | Encounter Summary ---
Author Organization [employer] ([place], [place], [place], [place]) Address [address] [place] [address] Care Team Providers Care Banquet Kitchen Supervisor Name Role Phone Case, Fang Dodson RN Unavailable Unavailable Sidney Morris [facility] Primary Care Provider Unavailable Alec Sutherland MD Primary Care Provider [phone] Reason for Referral * Mammography (Routine) - Closed Specialty Diagnoses / Procedures Referred By Contac t Referred To Contact Diagnoses Personal history of malignant neoplasm of breast Procedures MM digital mammo diagnostic left Jose Ryder MD [address] [place] [phone] Phone: tel: fax: Referral ID Status Reason Start Date Expiration Date Visits Re quested Visits Authorized [id number] Closed 08/03/2022 01/30/2023 1 1 Encounter Details Date Type Department Care Team (Late st Contact Info) Description 02/02/2022 Outside Orders [facility] Breast Care [facility] [address] [facility] [address] [place] [address] Jose Ryder MD [address] [place] [phone] Personal history of malignant neoplasm of [...] in October 2022 At our facility, a [place] marker is positioned over a visible skin [...] family history of breast cancer COMPARISON STUDY: [facility] December 2021, December 2021, October 2021, [...] breast documented in this encounter Care Teams Banquet Kitchen Supervisor Relationship Specialty Start Date End Date Sidney Morris PCP - General 02/01/23 02/01/23 [facility], Provider Not In The System, [place] [address] PCP - General 02/27/23 09/19/23 Alec Sutherland MD [address] [place] [address] PCP - General Family Medicine 09/20/23 Fang Andrade, RN Nurse Navigator 04/17/22 08/14/23 documented as of this encounter
--- OUTSIDE RECORDS SUMMARY | 2024-12-10 07:46 | XMS_ITS | Referral Summary ---
Author Organization [employer] ([place], [place], [place], [place]) Address [address] [place] [address] Care Team Providers Care Freezing Room Worker Name Role Phone Alec Sutherland MD Primary Care Provider [phone] Allergies No known active allergies Medications aspirin [...] stage from 02/02/2022: pT1b, pN0, cM0, ER+, IN+, HER2- - Signed by Hanna Campbell MD on 02/03/2022 CAD (coronary artery disease) 01/24/2022 Overview (01/24/2022): S/p stents Primary hypertension 01/24/2022 Diabetes mellitus, type 2 01/24/2022 Hypothyroidism 01/24/2022 PONV (postoperative nausea and vomiting) 022 Immunizations Immunization Administration Dates Next Due Pneumococcal, Nos 09/02/2015 [...] Date Xavier rded Speak language other than Greenlandic at home Not on file 04/13/2023 Want [...] on file Medical Devices Implanted Type Area Health Insurance Agent Device Identifier Shelf Expiration Date Model / Serial / Lot Joints Joints Left: Knee Stents-Coronar y Stents-Isiah nary [facility] H[facility] MAP Care Teams Freezing Room Worker Relationship Specialty Start Date End Date Alec Sutherland MD [address] [place] [address] PCP - General Family Medicine 09/20/23
--- OUTSIDE RECORDS SUMMARY | 2024-12-10 07:46 | XMS_ITS | Clinical Summary ---
Author Organization Healthcare Address [address] [place] [address] Care Team Providers Care Respiratory Support Technician Name Role Phone Unavailable Primary Care Provider [...] Screening 1945 [facility]-Medicare Annual Wellness (AWV) 1945 [facility]-/Child/Adol SDOH Screenings 1945 [facility]- SDOH Screenings 1964 [facility]-Adult SDOH Screenings 1964 [facility]-Pneumococcal Vaccine: 50+ Years (1 of 1 - PCV) 1996 09/02/2015 [facility]-Zoster Vaccines (1 of 2) 1996 [facility]-DTaP,Tdap,and Td Vaccines (1 - Tdap) 06/08/1996 06/07/1996 [facility]-RSV Vaccine: 60+ Years or (1 - 1-dose 75+ series) 2021 [id number] Vaccine ( season) 2024 03/15/2022, 09/09/2021, 12/29/2020, Additional history exists [facility]-Influenza [...]
--- OUTSIDE RECORDS SUMMARY | 2024-12-10 07:46 | XMS_ITS | Clinical Summary ---
Author Organization [facility] Address [address] [place] [address], [address] [place] [address] Care Team Providers Care Change Control Coordinator Name Role Phone System, Referring Not In [...] of Treatment Not on file Care Teams Change Control Coordinator Relationship Specialty Start Date End Date System, Referring Not In PCP - General 04/13/10
--- OUTSIDE RECORDS SUMMARY | 2024-12-10 07:46 | XMS_ITS | Clinical Summary ---
[facility] Address [address] [place] [address] Care Team Providers Care Res Habilitation Assistant Name Role Phone Unavailable Primary Care Provider [...]
--- OUTSIDE RECORDS SUMMARY | 2024-12-10 07:47 | XMS_ITS | Clinical Summary ---
Author Organization [employer] ([place], [place], [place], [place]) Address [address] [place] [address] Care Team Providers Care Government Affairs Manager Name Role Phone Alec Sutherland MD Primary Care Provider [phone] Allergies No known active allergies Medications aspirin [...] stage from 02/02/2022: pT1b, pN0, cM0, ER+, [place]+, HER2- - Signed by Hanna Campbell MD [...] Date Xavier rded Speak language other than Polish at home Not on file 04/13/2023 Want [...] 1-dose 75+ series) 2021 Hemoglobin A1C 01/24/2022 Falls Risk Screening 04/02/2024 Tobacco Cessation Counseling and Screening (12+) 09/19/2024 09/20/2023 COVID-19 VACCINE (5 - 2024-2 6 season) 2024 09/09/2021, 12/29/2020, 05/27/2020, Additional history exists Influenza Vaccine (#1) 2024 Medical Devices Implanted Type Area Analyst Sales Device Identifier Shelf Expiration Date Model / Serial / Lot Joints Joints Left: Knee Stents-Coronar y Stents-Isiah nary Insurance [facility] [employer] MAP Care Teams Government Affairs Manager Relationship Specialty Start Date End Date Alec Sutherland MD [address] [place] [address] PCP - General Family Medicine 09/20/23
--- NOTE | 2024-12-10 08:00 | NM_ITS ---
APPROVED REPORT Exam: Nuclear Stress Test Indication: soa..palpitations Patient Location: Outpatient Stress Tech: Tiffanie Bear OR Tech:OLVIN Burnham RT(R)(N) Ht: 5 ft 6 in Wt: 189 lbs Bra Size: 38d HR: 65 bpm BP: 181/65 mmHg BSA: 1.95 m2 TID: 1.23 BMI: 30.5 History: soa..palpitations Procedure: Patient received 0.4 mg of intravenous Lexiscan, resting heart rate 65 bpm, resting blood pressure 181/65 mmHg, with Lexiscan maximum heart rate achieved was 81 bpm which is 85 % of the maximum predicted heart rate and blood pressure was 167/55 mmHg. With Lexiscan, patient denied any complaint of chest pain. The patient was not able to lay on her abdomen for prone images. Cardiac Stress and Resting SPECT Images: Cardiac Stress and Resting SPECT images were obtained using technetium 99m Myoview 32.8 mCi stress and 10.98 mCi at rest. The patient was unable to lie on her abdomen. Therefore, prone stress imaging could not be performed. This may affect the diagnostic interpretation of the study findings. Resting and stress imaging in supine positions demonstrate medium sized, moderate, partially reversible perfusion defect in the basal inferior LV wall. There is also increase in transient ischemic dilatation ratio (TID 1.23), which may be suggestive of possible multivessel disease or balanced ischemia. Gated imaging demonstrates low normal global LV systolic function. LVEF is calculated at 52%. Conclusion: Medium sized, moderate, partially reversible perfusion defect in the basal inferior LV wall. Findings are suggestive of partial reversible ischemia. There is also increase in transient ischemic dilatation ratio (TID 1.23), which may be suggestive of possible multivessel disease or balanced ischemia. Gated imaging demonstrates low normal global LV systolic function. LVEF is calculated at 52%. Electronically signed by : Adri Salgado MD 12/10/2024 11:44:41
[2024-12-10 09:36] VITALS: BP 181/65; PULSE 64; RESP 16
[2024-12-10] MEDS: ISOTOPE MYOVIEW (PER STUDY) 1 DOSE IV (10:19)
[2024-12-10] MEDS: SODIUM CHLORIDE 0.9% 10ML SYR (RAD ONLY) 10 ML IV ×2 (10:19→10:20)
--- NOTE | 2024-12-10 10:30 | CA_ITS ---
APPROVED REPORT EXAM: Comprehensive 2D, Doppler, and color-flow Echocardiogram Hide Cooking Operator: Sienna Dickens RVT Ht: 5 ft 9 in Wt: 190lbs BSA: 2.02 BP: 177/65 mmHg Indications: CORONARY ARTERY DISEASE,SYNCOPE 2D Dimensions Left Atrium 4.35 cm F: 2.7 - 3.8 LA Volume 45.50 mL RVID Base (AP4) 2.86 cm (M/F) 2.5-4.1 LA Volume Index 22.52 mL/m2 (M/F) 16-34 LVOT 1.94 cm (M/F) 1.5-2.5 EF AP4 57.30 % GL Strain -24.3 % M-Mode Dimensions RVDd 2.50 cm (0.9-2.6) LVDd 5.84 cm (3.5-5.7) Ao Diam 3.16 cm (2.0-3.7) LVDs 3.75 cm (3.5-5.7) IVSd 0.87 cm (0.6-1.1) PWd 0.76 cm (0.6-1.1) EF (Teich) 64.50% FS 35.80% EDV (Teich) 169.20 mL ESV (Teich) 60.00 mL LV Diastology E Decel Time 206 (160-240 msec) E/A Ratio 0.6 MED E' 7.6 (>= 7 cm/sec) E'/MED E' Ratio 7.78 (<= 14) LAT E' 7.7 (>= 10 cm/sec) E/LAT E' Ratio 7.68 (<= 14) Aortic Valve LVOT Max 97.0 (70-110 cm/s) VINCENZO Index 1.00 cm2/m2 LVOT VTI 21.58 cm AoV Peak Benjamin. 124.0 (50-130 cm/s) AO Peak GR. 6.20 mmHg AO Mean GR. 4.20 (<5 mmHg) AO VTI 31.5 (18-25 cm) VINCENZO (VTI) 2.02 (2.5-4.5 cm2) Mitral Valve MV E Max Benjamin. 59.0 (40-130 cm/s) MV A Velocity 98.0 (40-130 cm/s) E/A Ratio 0.61 MV Decel. Time 206 (160-240 ms) Left Ventricle The left ventricle is normal size. Left ventricular systolic function is normal. The left ventricular ejection fraction is within the normal range. There is increased left ventricular wall thickness. There is normal LV segmental wall motion. Transmitral Doppler flow pattern suggests impaired LV relaxation. LVEF is 60%. Right Ventricle The right ventricle is mildly dilated. The right ventricular systolic function is mildly reduced. Atria The left atrium is mildly dilated. The right atrium is mildly dilated. There is no color Doppler evidence of interatrial shunt. Aortic Valve The aortic valve is mildly thickened. There is no hemodynamically significant aortic valvular stenosis. Trace aortic regurgitation is present. Mitral Valve The mitral valve is normal in structure. No evidence of mitral valve stenosis. Mild mitral regurgitation is present. Tricuspid Valve The tricuspid valve leaflets are thin and pliable. Trace tricuspid regurgitation. There is insufficient TR jet to estimate RVSP. Pulmonic Valve The pulmonary valve is grossly normal in structure. Trace pulmonic valve regurgitation is present. Great Vessels The aortic root is normal in size. IVC is normal in size and collapses >50% with inspiration. Pericardium There is no pericardial effusion. Other Information Study Quality: Technically Difficult Conclusion Technically difficult study. Normal LV systolic function. Mild RV dilation with mild reduction in RV function. Mild biatrial dilation. Mild MR. Electronically signed by : Adri Salgado MD 12/10/2024 11:38:06
== END 2024-12-10 23:59 | disposition home or self-care (01) ==
LOC: RAD 07:45
PROVIDERS: PCP Family Medicine; Visit Provider Nurse Practitioner
DX: I34.0 Nonrheumatic mitral (valve) insufficiency (principal); I11.9 Hypertensive heart disease without heart failure; I49.3 Ventricular premature depolarization; I25.10 Atherosclerotic heart disease of native coronary artery without angina pectoris; R55 Syncope and collapse; I77.9 Disorder of arteries and arterioles, unspecified; I65.29 Occlusion and stenosis of unspecified carotid artery; R94.39 Abnormal result of other cardiovascular function study; Z71.1 Person with feared health complaint in whom no diagnosis is made
CPT/HCPCS: 78452; 93017; 93018; 93306; A9502; J2785

== ENCOUNTER 2024-12-30 08:18 | Outpatient (CLI) | payer MEDICARE, OTHER, SELFPAY ==
--- NOTE | 2024-12-30 08:20 | MM_ITS ---
PROCEDURE INFORMATION: Exam: MG Bilateral Screening 3D Mammography Exam date and time: 12/30/2024 8:29 AM Age: 79 years old Clinical indication: Screening examination TECHNIQUE: Imaging protocol: Bilateral Screening tomosynthesis and 2D mammography including computer-aided detection (CAD) when performed. COMPARISON: 1. MG MM DIG SCREENING MAMM BI W/CAD 12/25/2023 8:23 AM 2. MG MM DIGITAL MAMMO DIAGNOSTIC WITH DELISA RIGHT 09/20/2023 9:22 AM FINDINGS: MAMMOGRAPHY: Breast composition: There are scattered areas of fibroglandular density. Mass: No suspicious masses. Architectural distortion: Postsurgical changes redemonstrated in both breasts. Calcifications: No suspicious calcifications. Asymmetric density: None. Skin thickening: None. Axillary adenopathy: None. IMPRESSION: No mammographic evidence of malignancy. Annual screening is recommended unless otherwise clinically indicated. ASSESSMENT: BI-RADS Category 2: Benign.
--- OUTSIDE RECORDS SUMMARY | 2024-12-30 08:23 | XMS_ITS | Encounter Summary ---
Author Organization [facility] Address [address] [place] [address] Care Team Providers Care Cork Compounder Name Role Phone Unavailable Primary Care Provider Unavailabl e Reason for Referral * Consultation (Routine) - Authorized Specialty Diagnoses / Procedures Referred By Contact Referred To Contact Vascular Surgery / Comprehensive Vascular Clinic Diagnoses Bilateral carotid artery stenosis Stephanie Oliveros APRN [address] [place] [address] Phone: tel: fax: [facility] [address] [facility] [place] [address] Phone: tel: fax: Referral ID Status Reason Start Date Expiration Date Visits Requested Visits Authorized [id number] Authorized Specialty Services Required 12/29/2024 06/30/2026 1 1 Encounter Details Date Type Department Care Team (Late st Contact Info) Description 12/29/2024 Orders Only [facility] [place] [facility] [address] [place] [address] Heather Saini, RN [facility] - [facility] Bilateral carotid artery stenosis (Primary Dx) Social History Tobacco Use Types Packs/Day Years Used Date Smoking Tobacco: Never Assessed Comments Unknown Sex and Gender Information Value Date Recorded Sex Assigned at Not on file Legal Sex Female 8:22 PM EDT Gender Identity Not on file Sexual Orientation Not on file documented as of this encounter Plan of Treatment Scheduled Referrals Name Type Priority Associated Diagnoses Order Schedule Ambulatory referral to Vascular Surgery Outpatient Referral Routine Bilateral carotid artery stenosis Expected: 12/29/2024 (Approximate), Expires: 06/28/2026 documented as of this encounter Visit Diagnoses Diagnosis Bilateral carotid artery stenosis- Primary Occlusion and stenosis of carotid artery without mention of cerebral infarction documented in this encounter
--- OUTSIDE RECORDS SUMMARY | 2024-12-30 08:23 | XMS_ITS | Encounter Summary ---
Author Organization [employer] ([place], [place], [place], [place]) Address [address] [place] [address] Care Team Providers Care Health Sciences Program Coordinator Name Role Phone Case, Fang Dodson RN Unavailable Unavailable Sidney Morris [facility] In The System Primary Care Provider Unavailable Alec Sutherland MD Primary Care Provider [phone] Reason for Referral * Mammography (Routine) - Closed Specialty Diagnoses / Procedures Referred By Contac t Referred To Contact Diagnoses Personal history of malignant neoplasm of breast Procedures MM digital mammo diagnostic left Jose Ryder MD [address] [place] [address] Phone: tel: fax: Referral ID Status Reason Start Date Expiration Date Visits Re quested Visits Authorized [id number] Closed 08/03/2022 01/30/2023 1 1 Encounter Details Date Type Department Care Team (Late st Contact Info) Description 02/02/2022 Outside Orders [facility] Breast Care [facility] [address] [facility] [address] [place] [address] Jose Ryder MD [address] [place] [address] Personal history of malignant neoplasm of breast [...] in October 2022 At our facility, a tetlin marker is positioned over a visible skin [...] family history of breast cancer COMPARISON STUDY: [facility] December 2021, December 2021, October 2021, September [...] breast documented in this encounter Care Teams Health Sciences Program Coordinator Relationship Specialty Start Date End Date Sidney Morris PCP - General 02/01/23 02/01/23 [facility], Provider Not In The System, [place] [address] PCP - General 02/27/23 09/19/23 Alec Sutherland MD [facility] [place] [address] PCP - General Family Medicine 09/20/23 Fang Andrade, RN Nurse Navigator 04/17/22 08/14/23 documented as of this encounter
--- OUTSIDE RECORDS SUMMARY | 2024-12-30 08:23 | XMS_ITS | Clinical Summary ---
Author Organization [facility] Address [address] [place] [address], [address] [place] [address] Care Team Providers Care Vamp Maker Name Role Phone System, Referring Not In [...] of Treatment Not on file Care Teams Vamp Maker Relationship Specialty Start Date End Date System, Referring Not In PCP - General 04/13/10
--- OUTSIDE RECORDS SUMMARY | 2024-12-30 08:23 | XMS_ITS | Clinical Summary ---
Author Organization [facility] Address [address] [place] [address] Care Team Providers Care Pharmacognosy Teacher Name Role Phone Unavailable Primary Care Provider [...] Adults (1 - 1-dose 75+ series) 2 INFLUENZA VACCINE 10/31/2024 COVID-19 Vaccine (2023- season) 2024 Insurance
--- OUTSIDE RECORDS SUMMARY | 2024-12-30 08:23 | XMS_ITS | Clinical Summary ---
Author Organization [facility] Address [address] [place] [address] Care Team Providers Care Wood Sawyer Name Role Phone Unavailable Primary Care Provider Unavailabl e Encounters Date Type Department Care Team Description 12/29/2024 Orders Only [facility] [place] [facility] [address] [place] [address] Heather Saini, RN Bilateral carotid artery stenosis (Primary Dx) from Last 3 Months Social History Tobacco Use Types Packs/Day Years [...] or (1 - 1-dose 75+ series) 2021 [id number] Vaccine ( season) 2024 03/15/2022, 09/09/2021, 12/29/2020, [...]
--- OUTSIDE RECORDS SUMMARY | 2024-12-30 08:23 | XMS_ITS | Referral Summary ---
Author Organization [employer] ([place], [place], [place], [place]) Address [address] [place] [address] Care Team Providers Care Exchange Specialist Name Role Phone Alec Sutherland MD Primary Care Provider [phone] Allergies No known active allergies Medications aspirin [...] Date Xavier rded Speak language other than Chadian at home Not on file 04/13/2023 Want [...] on file Medical Devices Implanted Type Area Radiology Interventional Physician Device Identifier Shelf Expiration Date Model / Serial / Lot Joints Joints Left: Knee Stents-Coronar y Stents-Isiah nary Insurance [facility] ACC[facility] H[facility] MAP Care Teams Exchange Specialist Relationship Specialty Start Date End Date Alec Sutherland MD [address] [place] [address] PCP - General Family Medicine 09/20/23
--- OUTSIDE RECORDS SUMMARY | 2024-12-30 08:24 | XMS_ITS | Clinical Summary ---
Author Organization [employer] ([place], [place], [place], [place]) Address [address] [place] [address] Care Team Providers Care Mandarin Tutor Name Role Phone Alec Sutherland MD Primary Care Provider [phone] Allergies No known active allergies Medications aspirin [...] stage from 02/02/2022: pT1b, pN0, cM0, ER+, [place]+, HER2- - Signed by Hanna Campbell MD [...] Date Xavier rded Speak language other than Iranian at home Not on file 04/13/2023 Want [...] (#1) 2024 Medical Devices Implanted Type Area Assembler [employer] Device Identifier Shelf Expiration Date Model / Serial / Lot Joints Joints Left: Knee Stents-Coronar y Stents-Isiah nary Insurance [employer] [employer] O MAP Care Teams Mandarin Tutor Relationship Specialty Start Date End Date Alec Sutherland MD [address] [place] [address] PCP - General Family Medicine 09/20/23
== END 2024-12-30 23:59 | disposition home or self-care (01) ==
LOC: RAD 08:18
PROVIDERS: PCP Nurse Practitioner; Visit Provider Nurse Practitioner
DX: Z12.31 Encounter for screening mammogram for malignant neoplasm of breast (principal); R92.323 Mammographic fibroglandular density, bilateral breasts; Z98.890 Other specified postprocedural states
CPT/HCPCS: 77063; 77067

== ENCOUNTER 2025-01-07 08:50 | Outpatient (CLI) | payer MEDICARE, OTHER, SELFPAY ==
--- NOTE | 2025-01-07 09:15 | CA_ITS ---
FINAL REPORT CLINICAL HISTORY: HTN COMPARISON: None FINDINGS: Aorta velocity: 212 cm/sec Right kidney: 11.9 cm. No evidence of hydronephrosis or mass. Several right renal cysts are noted, the largest measuring 3 cm in size. Right intrarenal RI: 0.73-0.81 Right renal artery velocity: 196 cm/sec. Right RAR (Renal artery-Aortic Ratio): 0.9 Left Kidney: 12.1 cm. No evidence of hydronephrosis or mass. Left intrarenal RI: 0.63-0.74 Left renal artery velocity: 222 cm/sec. Left RAR (Renal Artery-Aortic Ratio): 1.3 IMPRESSION: Less than 60% stenosis of the renal arteries bilaterally. CT angiogram or postcontrast MR angiogram would be more sensitive for evaluation of possible renal artery stenosis. Reviewed, Interpreted and Dictated by Rima Jyoner MD Transcribed by Beba Fuentes Authenticated and [facility]
--- NOTE | 2025-01-07 10:15 | US_ITS ---
FINAL REPORT TECHNIQUE: Sonographic images of the kidneys and retroperitoneum were obtained in the longitudinal and transverse planes. CLINICAL HISTORY: R55 - Syncope and collapse FINDINGS: The right kidney measures 9.8 cm in [id number] length. There is no hydronephrosis or stone. Several right renal cysts are identified. There is a 3.2 cm lower pole cyst with at least 1 thin septa. Cortical echogenicity and thickness are normal. The left kidney measures 11.5 cm in gjnt-qj-ocbu length. No hydronephrosis, mass, or stone. Cortical echogenicity and thickness are normal. There is fatty infiltration of the liver. IMPRESSION: Right renal cyst. Fatty liver. Reviewed, Interpreted and Dictated by Rima Joyner MD Transcribed by Madalyn Pak Authenticated and [facility]
== END 2025-01-07 23:59 | disposition home or self-care (01) ==
LOC: RT 08:50
PROVIDERS: PCP Nurse Practitioner; Visit Provider Nurse Practitioner
DX: K76.0 Fatty (change of) liver, not elsewhere classified (principal); N28.1 Cyst of kidney, acquired; I70.1 Atherosclerosis of renal artery; I25.10 Atherosclerotic heart disease of native coronary artery without angina pectoris; R55 Syncope and collapse; I10 Essential (primary) hypertension; R94.39 Abnormal result of other cardiovascular function study
CPT/HCPCS: 76770; 93976

== ENCOUNTER 2025-01-21 07:29 | Day surgery (SDC) | payer MEDICARE, OTHER, SELFPAY ==
[2025-01-21] VITALS (15 sets, daily range): BP systolic 116–201; BP diastolic 49–78; PULSE 51–69; RESP 18; TEMP 36.9; O2SAT 94–99; BMI 27.4
--- NOTE | 2025-01-21 07:14 | IR_ITS ---
APPROVED REPORT Patient Location: Outpatient Jute Bag Cutting Machine Operator: Jarocho Pacheco, RT (R) PROCEDURES Left heart catheterization Left ventriculogram Selective coronary angiogram Drug-eluting stent deployment to the ostial proximal and mid dominant right coronary artery in a continuous manner INDICATION Coronary artery disease, Risk abnormal Myoview, Informed consent was obtained prior to the procedure. COMPLICATIONS NONE Estimated Blood Loss: LESS THAN 10 ML TECHNIQUE One percent lidocaine used to anesthetize the right medial aspect of the wrist. The right ulnar artery was accessed via the Seldinger technique. A 6 Tunisian sheath was placed in the right ulnar artery. 2.5 mg of Verapamil, 800 mcg of nitroglycerin, 1mg Lidocaine and 5000 U Heparin were given through the arterial sheath. The JL3 catheter was also used to perform left heart catheterization, left ventriculogram and selective coronary angiogram. At the end the diagnostic angiogram therapeutic heparin was administered giving a therapeutic ACT and the guide catheter was placed in the right coronary artery followed by Choice PT extra-support wire. A 4 mm x 38 mm Richwood frontier stent was placed in the mid to proximal right coronary artery and deployed at 22 shruthi. An additional 4 mm x 18 mm Richwood frontier stent was placed proximal to the first stent yet still overlapping and extending back into the ostium and deployed at 24 shruthi. The balloon was advanced and deployed at 24 shruthi which did not resolve the in-stent restenosis. A 4.5 x 12 mm noncompliant balloon was deployed at 24 shruthi in the proximal and midportion of the first stent in order to dilate a severely stenotic area. The balloon was brought back and deployed at 24 shruthi to post dilate the proximal segments. After achieving excellent angiographic results the apparatus was removed the sheath was removed and hemostasis was achieved using TR band patient was transferred to the postop boarding in stable condition ANGIOGRAPHIC RESULTS The left main artery Normal The left anterior descending artery Has proximal and mid vessel calcified 30% nonflow limiting stenosis The circumflex artery Nondominant with diffuse calcified 10 to 20% stenoses The right coronary artery Large dominant with stent in the proximal to mid segment. The proximal portion has 50% stenosis in dampens with engagement of the catheter. This is followed by mostly eccentric 50% stenosis followed by a concentric 90% stenosis. Distally there are 30% diffuse stenosis The WATERS ventriculogram reveals Preserved at 55 The left ventricular end-diastolic pressure Elevated at 25 mmHg IMPRESSION Coronary disease as described above most notably with severe stenosis within the dominant right coronary Successful stenting of the ostial proximal and mid dominant right coronary artery severe disease reduced to less than 10% with 2 contiguous drug-eluting stents Preserved ejection fraction of 55% Elevated LVEDP PLAN 1. Dual antiplatelet therapy 2. Treatment of diastolic dysfunction 3. LDL less than 55 achieved at high intensity statin 4. Avoidance of tobacco products 5. Risk factor modification 6. Cardiac rehabilitation Electronically signed by : Raudel Hayes MD 01/21/2025 10:10:41
[2025-01-21 07:58] LABS: Hematocrit 38.7 % (37.0-47.0); Hemoglobin 12.7 g/dL (12.2-16.2); Immature Granulocytes % 0.4 %; Mean Corpuscular HGB Conc 32.8 g/dL (31.8-35.4); Mean Corpuscular Hemoglobin 29.1 pg (27.0-31.2); Mean Corpuscular Volume 88.6 fl (81-99); Nucleated Red Blood Cells % 0 %; Platelet Count 204 K/mm3 (142-424); Red Blood Count 4.37 M/mm3 (4.20-5.40); Red Cell Distribution Width-SD 44.2 fL; White Blood Count 9.3 K/mm3 (4.8-10.8)
[2025-01-21 08:05] LABS: Chloride 92 mmol/L (98-107); Potassium 4.0 mmoL/L (3.5-5.1); Sodium 134 mmol/L (136-145)
[2025-01-21 08:07] LABS: Blood Urea Nitrogen 16 mg/dl (7-17); Creatinine Clearance Estimated 62 mL/min (50-200); Creatinine,Serum 0.90 mg/dl (0.52-1.04); Estimated Glomerular Filt Rate 61 ml/min (>60); GFR (African American) 73 ML/MIN (>60)
[2025-01-21 08:08] LABS: Anion Gap 14.0 mEq/L (5-15); Calcium 9.2 mg/dl (8.4-10.2); Carbon Dioxide 32 mmol/L (22.0-30.0); Glucose 140 mg/dl (74-100)
[2025-01-21] MEDS: LIDOCAINE 1% 10ML MDV 10 ML IJ (09:05)
[2025-01-21] MEDS: 0.9 % SODIUM CHLORIDE 500 ML 25 ML IV (09:05)
[2025-01-21] MEDS: HEPARIN 1,000 UNITS/500ML NS (CATH LAB) 3000 UNIT IV (09:06)
[2025-01-21] MEDS: VERAPAMIL 2.5MG/ML 2ML VIAL 2.5 MG IV (09:06)
[2025-01-21] MEDS: HEPARIN 1,000 UNITS/ML 10ML VIAL (CATH LAB) 5000 UNIT IV ×3 (09:06→10:12)
[2025-01-21] MEDS: FENTANYL 100MCG/2ML VIAL 50 MCG IV (09:56)
[2025-01-21] MEDS: MIDAZOLAM HCL 1MG/ML 5ML VIAL 1 MG IV (09:56)
[2025-01-21] MEDS: IOPAMIDOL-370 (76%);100ML BOTTLE 95 ML IV (10:45)
[2025-01-21 10:48] LABS: CATHL Activated Clotting Time 278 SEC (74-125)
== END 2025-01-21 14:02 | disposition home or self-care (01) ==
PROVIDERS: PCP Nurse Practitioner; Visit Provider Internal Medicine
PROC: 4A023N7 Measurement of Cardiac Sampling and Pressure, Left Heart, Percutaneous Approach (ICD-10-PCS; CPT 93452; principal; 2025-01-21 12:00)
DX: I25.10 Atherosclerotic heart disease of native coronary artery without angina pectoris (principal); R94.39 Abnormal result of other cardiovascular function study; R55 Syncope and collapse; H53.9 Unspecified visual disturbance; R06.09 Other forms of dyspnea; I77.9 Disorder of arteries and arterioles, unspecified; I11.0 Hypertensive heart disease with heart failure; I50.30 Unspecified diastolic (congestive) heart failure; E78.2 Mixed hyperlipidemia; I65.23 Occlusion and stenosis of bilateral carotid arteries; E11.9 Type 2 diabetes mellitus without complications; I51.89 Other ill-defined heart diseases; Z85.3 Personal history of malignant neoplasm of breast; Z87.891 Personal history of nicotine dependence; Z79.84 Long term (current) use of oral hypoglycemic drugs; Z79.82 Long term (current) use of aspirin; Z79.890 Hormone replacement therapy; Z79.4 Long term (current) use of insulin; Z79.51 Long term (current) use of inhaled steroids; Z79.02 Long term (current) use of antithrombotics/antiplatelets; Z79.899 Other long term (current) drug therapy; Z95.5 Presence of coronary angioplasty implant and graft
CPT/HCPCS: 80048; 85025; 85347; 92928; 93458; 99152; 99153; C1725; C1769; C1874; C9600; J1200; J1644; J2003; J3010; J7040; Q9967

== ENCOUNTER 2025-01-26 08:18 | Outpatient (CLI) | payer MEDICARE, OTHER, SELFPAY ==
--- OUTSIDE RECORDS SUMMARY | 2025-01-26 08:25 | XMS_ITS | Encounter Summary ---
Author Organization Healthcare Address [address] [place] [address] Care Team Providers Care Color Television Console Monitor Name Role Phone Unavailable Primary Care Provider Unavailabl e Encounter Details Date Type Department Care Team (Late st Contact Info) Description 01/07/2025 Orders Only External Location [address] [place] [address] Provider, External Social History Tobacco Use Types Packs/Day Years Used Date Smoking Tobacco: Never Assessed Comments Unknown Sex and Gender Information Value Date Recorded Sex Assigned at Not on file Legal Sex Female 8:22 PM EDT Gender Identity Not on file Sexual Orientation Not on file documented as of this encounter Plan of Treatment Upcoming Encounters Date Type Department Care Team (Late st Contact Info) Description 02/17/2025 10:40 AM EST Office Visit [place] [facility] [address] [facility] 5th Floor [address] [place] [address] Maria Isabel Perez MD [address] [facility] [address] [place] [address] documented as of this encounter Procedures Procedure Name Priority Date/Time Associated Diagnosis Comments US ABDOMEN OUTSIDE IMAGES 01/07/2025 9:09 AM EDT documented in this encounter Results * US ABDOMEN OUTSIDE IMAGES (01/07/2025 9:09 AM EDT) Anatomical Region Laterality Modality Ultrasound 01/07/2025 9:09 AM EDT us External Provider IMG US PROCEDURES Edited Resul t - Final documented in this encounter Visit Diagnoses Not on filedocumented in this encounter
--- OUTSIDE RECORDS SUMMARY | 2025-01-26 08:25 | XMS_ITS | Encounter Summary ---
Author Organization Healthcare Address [address] [place] [address] Care Team Providers Care Anatomic Pathology Assistant Name Role Phone Unavailable Primary Care Provider Unavailabl e Encounter Details Date Type Department Care Team (Late st Contact Info) Description 12/04/2024 Orders Only External Location [address] [place] [address] Provider, External Social History Tobacco Use Types [...] [place] [facility] [address] [facility] 5th Floor Wing [address], [address] [place] [address] Maria Isabel Perez MD [address] [facility] [address] [place] [address] documented as of this encounter Procedures Procedure Name Priority Date/Time Associated Diagnosis Comments CT NEURO OUTSIDE IMAGES 12/04/2024 10:52 AM EDT documented in this encounter Results * CT NEURO OUTSIDE IMAGES (12/04/2024 10:52 AM EDT) Anatomical Region Laterality Modality Computed Tomogra phy 12/04/2024 10:5 2 AM EDT us External Provider IMG CT PROCEDURES Edited Resul t - Final documented in this encounter Visit Diagnoses Not on filedocumented in this encounter
--- OUTSIDE RECORDS SUMMARY | 2025-01-26 08:25 | XMS_ITS | Encounter Summary ---
Author Organization Healthcare Address [address] [place] [address] Care Team Providers Care Spout Liner Helper Name Role Phone Unavailable Primary Care Provider Unavailabl e Encounter Details Date Type Department Care Team (Late Contact Info) Description 12/04/2024 Orders Only External Location [address] [place] [address] Stephanie Oliveros APRN [address] [facility] 400 [facility] [address] [place] [address] Social History Tobacco Use Types Packs/Day Years [...] Description 02/17/2025 10:40 AM EST Office Visit [place] [facility] [address] [facility] 5th Floor [address], [address] [place] [address] Maria Isabel Perez MD [address] [facility] [address] [place] [address] documented as of this encounter Procedures Procedure Name Priority Date/Time Associated Diagnosis Comments CT OUTSIDE IMAGES 12/04/2024 10:52 AM EDT documented in this encounter Results * CT OUTSIDE IMAGES (12/04/2024 10:52 AM EDT) Anatomical Region Laterality Modality Computed Tomogra phy 12/04/2024 10:5 2 AM EDT Stephanie Oliveros APRN IMG CT PROCEDURES Edit ed Result - Final documented in this encounter Visit Diagnoses Not on filedocumented in this encounter
--- OUTSIDE RECORDS SUMMARY | 2025-01-26 08:26 | XMS_ITS | Clinical Summary ---
Author Organization [facility] Address [address] [place] [address], [address] [place] [address] Care Team Providers Care Account Services Analyst Name Role Phone System, Referring Not In [...] of Treatment Not on file Care Teams Account Services Analyst Relationship Specialty Start Date End Date System, Referring Not In PCP - General 04/13/10
--- OUTSIDE RECORDS SUMMARY | 2025-01-26 08:26 | XMS_ITS | Clinical Summary ---
[facility] Address [address] [place] [address] Care Team Providers Care Education Liaison Name Role Phone Unavailable Primary Care Provider [...]
--- OUTSIDE RECORDS SUMMARY | 2025-01-26 08:26 | XMS_ITS | Encounter Summary ---
Author Organization Healthcare Address [address] [place] [address] Care Team Providers Care Finishing Machine Operator Name Role Phone Unavailable Primary Care Provider Unavailabl e Reason for Referral * Consultation (Routine) - Authorized Specialty Diagnoses / Procedures Referred By Contact Referred To Contact Vascular Surgery / [facility] Diagnoses Bilateral carotid artery stenosis Stephanie Oliveros APRN [address] [facility] [address] [place] [address] Phone: tel: fax: [facility] [address] [facility] 5th Floor [address], [address] [place] [address] Phone: tel: fax: Referral ID Status Reason Start Date Expiration Date Visits Requested Visits Authorized [id number] Authorized Specialty Services Required 12/29/2024 06/30/2026 1 1 Encounter Details Date Type Department Care Team (Late st Contact Info) Description 12/29/2024 Orders Only [facility] [place] Gideon [address] [place] [address] Heather Saini RN CH - 6 [facility] Bilateral carotid artery stenosis (Primary Dx) Social [...] Description 02/17/2025 10:40 AM EST Office Visit [facility] [address] [facility] 5th Floor [address], [address] [place] [address] Maria Isabel Perez MD [address] [facility] [address] [place] [address] Scheduled Referrals Name Type Priority Associated Diagnoses Order Schedule Ambulatory referral to Vascular Surgery Outpatient Referral Routine Bilateral carotid artery stenosis Expected: 12/29/2024 (Approximate), Expires: 06/28/2026 documented as of this encounter Visit Diagnoses Diagnosis Bilateral carotid artery stenosis- Primary Occlusion and stenosis of carotid artery without mention of cerebral infarction documented in this encounter
--- OUTSIDE RECORDS SUMMARY | 2025-01-26 08:26 | XMS_ITS | Clinical Summary ---
Author Organization Healthcare Address [address] [place] [address] Care Team Providers Care Track Inspector Name Role Phone Unavailable Primary Care Provider Unavailabl e Encounters Date Type Department Care Team Description 01/07/2025 Orders Only External Location [address] [place] [address] Provider, External 12/29/2024 Orders Only [facility] [place] Gideon [address] [facility]. [address] [place] [address] Heather Saini, RN Bilateral carotid artery stenosis (Primary Dx) 12/04/2024 Orders Only External Location [address] [place] [address] Stephanie Oliveros APRN 12/04/2024 Orders Only External Location [address] [place] [address] Provider, External from Last 3 Months Social History Tobacco Use Types Packs/Day Years Used Date Smoking Tobacco: Never Assessed Comments Unknown Sex and Gender Information Value Date Recorded Sex Assigned at Not on file Legal Sex Female 8:22 PM EDT Gender Identity Not on file Sexual Orientation Not on file Plan of Treatment Upcoming Encounters Date Type Department Care Team (Late st Contact Info) Description 02/17/2025 10:40 AM EST Office Visit [place] [facility] [address] [facility] 5th Floor Wing [address], [address] [place] [address] Maria Isabel Perez MD [address] [facility] [address] [place] [address] Health Maintenance Due Date Last Done Comments [facility]-Bone Density Scan 1945 [facility]-Depression Screening 1945 [facility]-Hepatitis C Screening 1945 [facility]-Medicare Annual Wellness (AWV) 1945 [facility]-/Child/Adol SDOH Screenings 1945 [facility]- SDOH Screenings 1964 [facility]-Adult SDOH Screenings 1964 [facility]-Pneumococcal Vaccine: 50+ Years (1 of 1 - PCV) 1996 09/02/2015 [facility]-Zoster Vaccines (1 of 2) 1996 [facility]-RSV Vaccine: 60+ Years or (1 - 1-dose 75+ series) 2021 [id number] Vaccine ( season) 2024 01/17/2024, 03/15/2022, 09/09/2021, Additional history exists [facility]-Influenza Vaccine (#1) 2024 02/02/2023 [facility]-DTaP,Tdap,and Td Vaccines (2 - Td or Tdap) 08/16/2032 08/16/2022, 06/07/1996 HPV Vaccines Aged Out No longer eligi [...] on patient's age to complete this topic Procedures Procedure Name Priority Date/Time Associated Diagnosis Comments US ABDOMEN OUTSIDE IMAGES 01/07/2025 9:[address] OUTSIDE IMAGES 12/04/2024 10:[address] NEURO OUTSIDE IMAGES 12/04/2024 10:52 AM EDT from Last 3 Months Results * US ABDOMEN OUTSIDE IMAGES (01/07/2025 9:09 AM EDT) Anatomical Region Laterality Modality Ultrasound 01/07/2025 9:09 AM EDT us External Provider IMG US PROCEDURES Edited Resul t - Final * CT OUTSIDE IMAGES (12/04/2024 10:52 AM EDT) Anatomical Region Laterality Modality Computed Tomogra phy 12/04/2024 10:5 2 AM EDT Stephanie Oliveros FRUIT HARVESTER MACHINE OPERATOR IMG CT PROCEDURES Edit ed Result - Final * CT NEURO OUTSIDE IMAGES (12/04/2024 10:52 AM EDT) Anatomical Region Laterality Modality Computed Tomogra phy 12/04/2024 10:5 2 AM EDT us External Provider IMG CT PROCEDURES Edited Resul t - Final from Last 3 Months Insurance [facility] MEDICARE [facility] MEDICARE
[2025-01-26 09:25] LABS: Hematocrit 36.7 % (37.0-47.0); Hemoglobin 11.5 g/dL (12.2-16.2); Immature Granulocytes % 0.5 %; Mean Corpuscular HGB Conc 31.3 g/dL (31.8-35.4); Mean Corpuscular Hemoglobin 28.4 pg (27.0-31.2); Mean Corpuscular Volume 90.6 fl (81-99); Nucleated Red Blood Cells % 0 %; Platelet Count 213 K/mm3 (142-424); Red Blood Count 4.05 M/mm3 (4.20-5.40); Red Cell Distribution Width-SD 45.6 fL; White Blood Count 10.0 K/mm3 (4.8-10.8)
[2025-01-26 11:31] LABS: Anion Gap 12.4 mEq/L (5-15); Blood Urea Nitrogen 20 mg/dl (7-17); Calcium 8.6 mg/dl (8.4-10.2); Carbon Dioxide 27 mmol/L (22.0-30.0); Chloride 91 mmol/L (98-107); Creatinine,Serum 0.80 mg/dl (0.52-1.04); Estimated Glomerular Filt Rate 69 ml/min (>60); GFR (African American) 84 ML/MIN (>60); Glucose 256 mg/dl (74-100); Potassium 4.4 mmoL/L (3.5-5.1); Sodium 126 mmol/L (136-145)
== END 2025-01-26 23:59 | disposition home or self-care (01) ==
LOC: LAB 08:19
PROVIDERS: PCP Nurse Practitioner; Visit Provider Internal Medicine
DX: I25.10 Atherosclerotic heart disease of native coronary artery without angina pectoris (principal)
CPT/HCPCS: 36415; 80048; 85025

== ENCOUNTER 2025-01-28 13:54 | Outpatient (CLI) | payer MEDICARE, OTHER, SELFPAY ==
--- OUTSIDE RECORDS SUMMARY | 2025-01-28 13:56 | XMS_ITS | Encounter Summary ---
Author Organization Healthcare Address [address] [place] [address] Care Team Providers Care Manager Reading Name Role Phone Unavailable Primary Care Provider Unavailabl e Encounter Details Date Type Department Care Team (Late st Contact Info) Description 12/04/2024 Orders Only External Location [address] [place] [address] Provider, External Social History Tobacco Use Types [...] [place] [facility] [address] [facility] 5th Floor [address], [address] [place] [address] Maria Isabel Perez MD [address] [facility] [address] [place] [address] documented as of this encounter Procedures Procedure [...]
--- OUTSIDE RECORDS SUMMARY | 2025-01-28 13:56 | XMS_ITS | Encounter Summary ---
Author Organization [facility] ([place], [place], [place], [place]) Address [address] [place] [address] Care Team Providers Care Licensed Final Expense Agents Name Role Phone Case, Fang Dodson RN Unavailable Unavailable Sidney Morris [facility] Not In The System Primary Care Provider Unavailable lAec Sutherland MD Primary Care Provider [phone] Reason for Referral * Mammography (Routine) - Closed Specialty Diagnoses / Procedures Referred By Contac t Referred To Contact Diagnoses Personal history of malignant neoplasm of breast Procedures MM digital mammo diagnostic left Jose Ryder MD [address] [place] [address] Phone: tel: fax: Referral ID Status Reason Start Date Expiration Date Visits Re quested Visits Authorized [id number] Closed 08/03/2022 01/30/2023 1 1 Encounter Details Date Type Department Care Team (Late st Contact Info) Description 02/02/2022 Outside Orders [facility] Breast Care [facility] [address] [facility] [address] [place] [address] Jose Ryder MD [address] [place] [address] Personal history of malignant neoplasm [...] in October 2022 At our facility, a swinomish marker is positioned over a visible skin [...] family history of breast cancer COMPARISON STUDY: [facility] December 2021, December 2021, October [...] breast documented in this encounter Care Teams Licensed Final Expense Agents Relationship Specialty Start Date End Date Sidney Morris PCP - General 02/01/23 02/01/23 [facility], Provider Not In The System, [place] [address] PCP - General 02/27/23 09/19/23 Alec Sutherland MD [facility] [place] [address] PCP - General Family Medicine 09/20/23 Fang Andrade, RN Nurse Navigator 04/17/22 08/14/23 documented as of this encounter
--- OUTSIDE RECORDS SUMMARY | 2025-01-28 13:56 | XMS_ITS | Clinical Summary ---
[facility] Organization [facility] Address [address] [place] [address] Care Team Providers Care Loft Worker Name Role Phone Unavailable Primary Care Provider [...]
--- OUTSIDE RECORDS SUMMARY | 2025-01-28 13:56 | XMS_ITS | Encounter Summary ---
Author Organization Healthcare Address [address] [place] [address] Care Team Providers Care Garnishment Specialist Name Role Phone Unavailable Primary Care Provider Unavailabl e Encounter Details Date Type Department Care Team (Late st Contact Info) Description 01/07/2025 Orders Only External Location [address] [place] [address] Provider, External Social History Tobacco Use Types [...] [place] [facility] [address] [facility] 5th Floor [address] [place] [address] Maria Isabel Perez MD [address] [facility] [address] [place] [address] documented as of this encounter Procedures Procedure [...]
--- OUTSIDE RECORDS SUMMARY | 2025-01-28 13:56 | XMS_ITS | Clinical Summary ---
Author Organization Healthcare Address [address] [place] [address] Care Team Providers Care Filer Helper Name Role Phone Unavailable Primary Care Provider Unavailabl e Encounters Date Type Department Care Team Description 01/07/2025 Orders Only External Location [address] [place] [address] Provider, External 12/29/2024 Orders Only [facility] [place] [facility] [address] [facility]. [address] [place] [address] Heather Saini, RN Bilateral carotid artery stenosis (Primary Dx) 12/04/2024 Orders Only External Location [address] [place] [address] Stephanie Oliveros APRN 12/04/2024 Orders Only External Location [address] [place] [address] Provider, External from Last 3 [...] Description 02/17/2025 10:40 AM EST Office Visit [place] [facility] [address] [facility] 5th Floor [address], [address] [place] [address] Maria Isabel Perez MD [address] [facility] [address] [place] [address] Health Maintenance Due Date Last [...] or (1 - 1-dose 75+ series) 2021 [id number] Vaccine ( season) 2024 01/17/2024, 03/15/2022, 09/09/2021, [...] 12/04/2024 10:5 2 AM EDT Stephanie Oliveros VETERINARY PATHOLOGIST IMG CT PROCEDURES Edit ed Result - Final * CT NEURO OUTSIDE IMAGES (12/04/2024 10:52 AM EDT) Anatomical Region Laterality Modality Computed Tomogra phy 12/04/2024 10:5 2 AM EDT us External Provider IMG CT PROCEDURES Edited Resul t - Final from Last 3 Months Insurance [facility] MEDICARE [facility] MEDICARE
--- OUTSIDE RECORDS SUMMARY | 2025-01-28 13:56 | XMS_ITS | Encounter Summary ---
Author Organization Healthcare Address [address] [place] [address] Care Team Providers Care Matcher Leather Parts Name Role Phone Unavailable Primary Care Provider Unavailabl e Encounter Details Date Type Department Care Team (Late Contact Info) Description 12/04/2024 Orders Only External Location [address] [place] [address] Stephanie Oliveros APRN [address] [facility] 400 [facility] 400 [place] [address] Social History Tobacco Use Types Packs/Day Years [...] Description 02/17/2025 10:40 AM EST Office Visit [place] [facility] [address] [facility] 5th Floor [address] [place] [address] Maria Isabel Perez MD [address] [facility] [address] [place] [address] documented as of this encounter Procedures Procedure [...]
--- OUTSIDE RECORDS SUMMARY | 2025-01-28 13:56 | XMS_ITS | Referral Summary ---
Author Organization [employer] ([place], [place], [place]) Address [address] [place] [address] Care Team Providers Care Silvering Applicator Name Role Phone Alec Sutherland MD Primary Care Provider [phone] Allergies No known active allergies Medications aspirin [...] stage from 02/02/2022: pT1b, pN0, cM0, ER+, AR+, HER2- - Signed by Hanna Campbell MD [...] Date Xavier rded Speak language other than Gibralt[place] at home Not on file 04/13/2023 Want [...] on file Medical Devices Implanted Type Area Returned Telephone Equipment Appraiser Device Identifier Shelf Expiration Date Model / Serial / Lot Joints Joints Left: Knee Stents-Coronar y Stents-Isiah nary Insurance [facility] ACCESS HMO MAP Care Teams Silvering Applicator Relationship Specialty Start Date End Date Alec Sutherland MD [address] [place] [address] PCP - General Family Medicine 09/20/23
--- OUTSIDE RECORDS SUMMARY | 2025-01-28 13:56 | XMS_ITS | Clinical Summary ---
Author Organization [facility] Address [address] [place] [address], [address] [place] [address] Care Team Providers Care Allocation Analyst Name Role Phone System, Referring Not [...] of Treatment Not on file Care Teams Allocation Analyst Relationship Specialty Start Date End Date System, Referring Not In PCP - General 04/13/10
--- OUTSIDE RECORDS SUMMARY | 2025-01-28 13:56 | XMS_ITS | Encounter Summary ---
Author Organization Healthcare Address [address] [place] [address] Care Team Providers Care Access Service Representative Name Role Phone Unavailable Primary Care Provider Unavailabl e Reason for Referral * Consultation (Routine) - Authorized Specialty Diagnoses / Procedures Referred By Contact Referred To Contact Vascular Surgery / [facility] Diagnoses Bilateral carotid artery stenosis Stephanie Oliveros APRN [address] [facility] [address] [place] [address] Phone: tel: fax: [facility] [address] [facility] 5th Floor [address] [place] [address] Phone: tel: fax: Referral ID Status Reason Start Date Expiration Date Visits Requested Visits Authorized [id number] Authorized Specialty Services Required 12/29/2024 06/30/2026 1 1 Encounter Details Date Type Department Care Team (Late st Contact Info) Description 12/29/2024 Orders Only [facility] [place] Gideon [address] [place] [address] Heather Saini RN CH - 6 [facility] Bilateral carotid artery stenosis (Primary Dx) [...] Description 02/17/2025 10:40 AM EST Office Visit [facility] [address] [facility] 5th Floor [address] [place] [address] Maria Isabel Perez MD [address] [facility] [address] [place] [address] Scheduled Referrals Name Type Priority Associated Diagnoses Order Schedule Ambulatory referral to Vascular Surgery Outpatient Referral Routine Bilateral carotid artery stenosis Expected: 12/29/2024 (Approximate), Expires: 06/28/2026 documented as of this encounter Visit Diagnoses Diagnosis Bilateral carotid artery stenosis- Primary Occlusion and stenosis of carotid artery without mention of cerebral infarction documented in this encounter
--- OUTSIDE RECORDS SUMMARY | 2025-01-28 13:56 | XMS_ITS | Clinical Summary ---
Author Organization [employer] ([place], [place], [place], [place]) Address [address] [place] [address] Care Team Providers Care Owner Operator Tanker Truck Driver Name Role Phone Alec Sutherland MD Primary Care Provider [phone] Allergies No known active allergies Medications aspirin [...] stage from 02/02/2022: pT1b, pN0, cM0, ER+, LA+, HER2- - Signed by Hanna Campbell MD [...] Date Xavier rded Speak language other than Grenadian at home Not on file 04/13/2023 Want [...] (#1) 2024 Medical Devices Implanted Type Area Gas Fitter Helper Device Identifier Shelf Expiration Date Model / Serial / Lot Joints Joints Left: Knee Stents-Coronar y Stents-Isiah nary Insurance [facility] Swirl O MAP Care Teams Owner Operator Tanker Truck Driver Relationship Specialty Start Date End Date Alec Sutherland MD [address] [place] [address] PCP - General Family Medicine 09/20/23
--- NOTE | 2025-01-28 14:00 | CA_ITS ---
FINAL REPORT CLINICAL HISTORY: heart cath with right ulnar wrist access 01/21/25. Patient states a knot appeared immediately after heart cath just proximal to ulnar artery insertion site. FINDINGS: DUPLEX DOPPLER UPPER EXTREMITY TECHNIQUE: Axial and color Doppler waveform evaluation of the right ulnar artery was performed. FINDINGS: The right ulnar artery is patent with no evidence of thrombosis or pseudoaneurysm. The right radial artery, by report, is patent. IMPRESSION: No evidence of right ulnar artery thrombosis or pseudoaneurysm. Reviewed, Interpreted and Dictated by Bk Singh MD Transcribed by Alexus Cruz Authenticated and [facility]
== END 2025-01-28 23:59 | disposition home or self-care (01) ==
LOC: RT 13:54
PROVIDERS: PCP Nurse Practitioner; Visit Provider Nurse Practitioner
DX: I72.1 Aneurysm of artery of upper extremity (principal); M25.531 Pain in right wrist; M25.431 Effusion, right wrist; T14.8XXA Other injury of unspecified body region, initial encounter; Z98.890 Other specified postprocedural states
CPT/HCPCS: 93931